=== PATIENT | male | born 1970 | race Caucasian/White ===

== ENCOUNTER 2020-08-05 06:29 | Day surgery (SDC) | payer OTHER, SELFPAY ==
[2020-07-30 11:02] VITALS: BMI 23.9
--- NOTE | 2020-07-30 15:24 | P.CONAN_ITS ---
Documented by User: Aurelia Jorge 07/30/20 15:24 HPI - Anesthesia Eval Consult details Narrative: 50yo M for Colonoscopy [facility] Past Medical History Medical History History of anxiety History of depression Social History Social History Smoking Status: Former smoker Smoking Quit Date: 2009 Use of substances other than those prescribed or required for medical reasons: No Advance Directives: No Advance Directives Information Provided: No Advance Directives on File: No Meds Allergies Allergy/AdvReac Type Severity Reaction Status Date / Time No Known Allergies Allergy Verified 07/30/20 15:25 Home Medications Medication Instructions Recorded Confirmed Type cholecalciferol (vitamin D3) 1 tab PO DAILY 07/30/20 08/05/20 History Exam Exam Date and Time: July 30, 2020 1524 Height,Weight and Vital Signs: Height 5 ft 9 in Weight 73.482 kg Documented by User: Arturo Christine 08/05/20 08:20 [facility] Past Medical History Medical History History of anxiety History of depression Social History Social History Smoking Status: Former smoker Smoking Quit Date: 2009 Use of substances other than those prescribed or required for medical reasons: No Advance Directives: No Advance Directives Information Provided: No Advance Directives on File: No Meds Allergies Allergy/AdvReac Type Severity Reaction Status Date / Time No Known Allergies Allergy Verified 07/30/20 15:25 Home Medications Medication Instructions Recorded Confirmed Type cholecalciferol (vitamin D3) 1 tab PO DAILY 07/30/20 08/05/20 History Exam Airway Mallampati Class: II TM Dist: >3cm Neck ROM: Full
[2020-08-05 07:31] VITALS: BP 133/92; PULSE 66; RESP 18; TEMP 36.3; O2SAT 97
[2020-08-05] MEDS: Lactated Ringers 1,000 ML 100 ML IVCONT (07:46)
--- NOTE | 2020-08-05 08:40 | MHC.SHP ---
Pre-Procedural Eval Section A The patient is an INPATIENT: No Section B Chief Complaint: screening Details of Present Illness: Colon Cancer screening--no high risk Relevant Family History (Specify if Yes): No Relevant Social History: Tobacco Use (only smoked for 6 years) Present Medications: None Medical History: No relevant PMH History of Previous Operations: No relevant previous surgery Allergies: Allergies Allergy/AdvReac Type Severity Reaction Status Date / Time No Known Allergies Allergy Verified 07/30/20 15:25 Review of Systems Sugical H&P ROS: Negative: Constitution, Cardiovascular, Respiratory and Gastrointestinal Review of Systems Comment: General ROS is neg Exam Surgical H&P Exam: Normal: Heart, Normal: Lungs, Normal: Extremities, Normal: Abdomen and Normal: Skin and Not Evaluated: HEENT and Not Evaluated: Neurological Exam Comment: normal exam Plan Diagnosis/Plan: Unchanged Patient has been examined and remains a candidate for the planned procedure
--- NOTE | 2020-08-05 09:12 | PM.OP ---
Brief Operative Note Date of procedure: 08/05/20 Pre-op diagnosis: Colon cancer Screening Post-op diagnosis: other (Minor Diverticulosis, 1+ Internal Hemorrhoids.) Procedure: Colonoscopy--no bx Implants: NONE Surgeon: Michelle Hook MD Anesthesia: MAC (Emmett/Daniel) Estimated blood loss (mL): 0 Pathology: none sent Condition: stable Disposition: PACU
[2020-08-05 09:16] VITALS: BP 97/60; PULSE 72; RESP 16; TEMP 37; O2SAT 97
[2020-08-05 09:31] VITALS: BP 107/65; PULSE 55; RESP 16; O2SAT 99
[2020-08-05 09:46] VITALS: BP 129/93; PULSE 57; RESP 16; TEMP 36.6; O2SAT 99
--- NOTE | 2020-08-05 10:12 | HO.POSTANES ---
Post Anesthesia Evaluation Post Anesthesia Evaluation Vital Signs: Vital Signs Temp Pulse Resp BP Pulse Ox 08/05/20 09:46 98 F 57 16 129/93 H 99 08/05/20 09:31 55 16 107/65 99 08/05/20 09:16 98.6 F 72 16 97/60 97 08/05/20 07:31 97.4 F 66 18 133/92 H 97 Anesthesia: Monitored Mental Status: Awake Pain Control: Satisfactory Nausea/Vomiting: None Hydration: Adequate Anesthesia-Related Issues: No Anes. Related Issues
== END 2020-08-05 10:29 | disposition home or self-care (01) ==
PROVIDERS: PCP Nurse Practitioner Family; Visit Provider Internal Medicine Gastroenterology
PROC: 0DJD8ZZ Inspection of Lower Intestinal Tract, Via Natural or Artificial Opening Endoscopic (ICD-10-PCS; CPT 45378; principal; 2020-08-05 08:30)
DX: Z12.11 Encounter for screening for malignant neoplasm of colon (principal); K57.30 Diverticulosis of large intestine without perforation or abscess without bleeding; K64.8 Other hemorrhoids; F32.9 Major depressive disorder, single episode, unspecified; F41.9 Anxiety disorder, unspecified; Z87.891 Personal history of nicotine dependence
CPT/HCPCS: 45378

== ENCOUNTER → 2020-08-30 11:05 | Outpatient (BNVA) | payer OTHER, SELFPAY | PROVIDERS: PCP Nurse Practitioner Family; Referring Provider Nurse Practitioner Family; Visit Provider Nurse Practitioner | DX: Z09 Encounter for follow-up examination after completed treatment for conditions other than malignant neoplasm (principal) | CPT/HCPCS: 99212 ==

== ENCOUNTER 2022-05-05 09:39 | Outpatient (REF) | payer OTHER, SELFPAY ==
--- NOTE | ~2022-05-05 | XR_ITS ---
EXAMINATION: XR HAND, LEFT CLINICAL INFORMATION: Contusion left hand. COMPARISON: None TECHNIQUE: PA, lateral, and oblique views of the left hand. FINDINGS: There is no visible acute fracture, dislocation or subluxation. No bony erosive changes. There is minimal soft tissue swelling PIP joints second through fourth digits. XR/XR hand LT min 3V IMPRESSION: Nonspecific soft tissue swelling PIP joints second through fourth digits. No visible acute fracture or dislocation.
== END 2022-05-05 09:40 | disposition home or self-care (01) ==
LOC: HO.XRAY 09:39
PROVIDERS: PCP Nurse Practitioner Family; Visit Provider Internal Medicine
DX: S60.222A Contusion of left hand, initial encounter (principal)
CPT/HCPCS: 73130

== ENCOUNTER 2022-09-13 07:29 | Outpatient (REF) | payer OTHER, SELFPAY ==
[2022-09-13 07:43] LABS: MANUAL DIFF FLAG NO
[2022-09-13 08:31] LABS: Basophils Percent Auto 0.7 % (0-2); Eosinophils Absolute Auto 0.2 X10*3/uL (0.0-0.4); Eosinophils Percent Auto 3.4 % (0-4); Hematocrit 45.7 % (42.0-52.0); Hemoglobin 15.8 g/dl (14.0-18.0); Imm Gran Abs Auto 0.01 X10*3/uL (0.00-0.03); Imm Gran Pct Auto 0.2 % (0.0-0.4); Lymphocytes Absolute Auto 1.4 X10*3/uL (1.2-4.9); Lymphocytes Percent Auto 26.5 % (20-40); Mean Corpuscular HGB Conc 34.6 g/dl (31.0-36.0); Mean Corpuscular Volume 89.6 fL (80.0-98.0); Monocytes Absolute Auto 0.6 X10*3/uL (0.1-1.2); Monocytes Percent Auto 10.7 % (2-11); Neutrophils Absolute Auto 3.1 x10*3/uL (2.0-8.3); Neutrophils Percent Auto 58.5 % (45-73); Platelet Count 285 X10*3/uL (160-400); Red Cell Distribution Width 11.9 % (11.0-16.0); White Blood Count 5.4 X10*3/uL (4.8-10.8)
[2022-09-13 09:07] LABS: Alanine Aminotransferase 29 U/L (0-40); Albumin Level 4.7 g/dL (3.5-5.0); Alkaline Phosphatase 61 U/L (39-117); Anion Gap 13 (12-20); Aspartate Amino Transferase 26 U/L (5-37); Bilirubin Total 0.8 mg/dL (0.0-1.0); Blood Urea Nitrogen 12 mg/dL (9-16); Calcium 9.6 mg/dL (8.4-10.2); Carbon Dioxide 30 mmol/L (22-29); Chloride 101 mmol/L (96-108); Cholesterol 256 mg/dL; Estimated Glomerular Filt Rate > 60; Glucose Fasting 87 mg/dL (60-99); HDL Cholesterol 64 mg/dL; LDL Cholesterol Calculated 163 mg/dl; Potassium 4.6 mmol/L (3.3-5.1); Sodium 139 mmol/L (135-145); Total Protein 7.3 g/dL (6.5-8.0); Triglycerides 147 mg/dL
[2022-09-13 09:25] LABS: TSH reflex Free T4 1.39 uIU/mL (0.32-4.0)
[2022-09-13 10:18] LABS: Appearance Urine Clear; Color Urine Yellow; Glucose Urine UA Negative (Negative); Leukocyte Esterase Urine Trace (Negative); Nitrite Urine Negative (Negative); UMIC TRIGGER UACC YES; Urine Blood Negative (Negative); Urine Ketones Negative (Negative); Urine Protein Negative (Neg-Trace)
[2022-09-13 10:24] LABS: Bacteria Urine None Seen (None Seen); Hyaline Casts Urine 0-2 /LPF (0-2); RBC Urine 0-2 /HPF (0-2); Squamous Epithelial Cell Urine 0-2 /HPF (0-2); WBC Urine 0-5 /HPF (0-5)
[2022-09-13 10:35] LABS: Prostate Specific Antigen Scr 4.52 ng/mL (<0.05-4.0)
== END 2022-09-13 07:30 | disposition home or self-care (01) ==
LOC: HO.LAB 07:29
PROVIDERS: PCP Nurse Practitioner Family; Visit Provider Nurse Practitioner Family
DX: Z12.5 Encounter for screening for malignant neoplasm of prostate (principal); I10 Essential (primary) hypertension
CPT/HCPCS: 36415; 80053; 80061; 81001; 81003; 84153; 84443; 85025

== ENCOUNTER → 2022-11-06 12:39 | Outpatient (BNVA) | payer OTHER, SELFPAY | PROVIDERS: PCP Nurse Practitioner Family; Visit Provider Nurse Practitioner Family | DX: R97.20 Elevated prostate specific antigen [PSA] (principal) | CPT/HCPCS: 99202 ==

== ENCOUNTER 2022-11-08 07:09 | Outpatient (REF) | payer OTHER, SELFPAY | END 2022-11-08 07:10 | disposition home or self-care (01) | LOC: HO.LAB 07:09 | PROVIDERS: PCP Nurse Practitioner Family; Visit Provider Nurse Practitioner Family | DX: R97.20 Elevated prostate specific antigen [PSA] (principal); Z12.5 Encounter for screening for malignant neoplasm of prostate | CPT/HCPCS: 36415; 84153 ==

== ENCOUNTER 2022-11-23 15:49 | Outpatient (REF) | payer OTHER, SELFPAY ==
--- NOTE | ~2022-11-23 | US_ITS ---
EXAMINATION: US RETROPERITONEAL LIMITED (RENAL ONLY) CLINICAL INFORMATION: Elevated PSA. COMPARISON: None TECHNIQUE: Real-time imaging of the kidneys. FINDINGS: RIGHT KIDNEY: 10.1 x 4.8 x 5.3 cm (SAG x AP x TRV). The kidney is normal in size, contour, and echogenicity. Renal cortical thickness is normal. No calculi or focal parenchymal lesions. No hydronephrosis. LEFT KIDNEY: 10.4 x 4.6 x 5.9 cm (SAG x AP x TRV). The kidney is normal in size, contour, and echogenicity. Renal cortical thickness is normal. No focal parenchymal lesions or hydronephrosis. At the interpolar aspect, a 6 mm nonobstructing calculus is seen, with twinkle artifact. At the lower pole, a 5 mm nonobstructing calculus is seen, with twinkle artifact. US/US retroperitoneal limited IMPRESSION: There are nonobstructing left renal calculi. No right renal calculus is seen. No hydronephrosis is noted bilaterally.
== END 2022-11-23 15:50 | disposition home or self-care (01) ==
LOC: HO.US 15:49
PROVIDERS: PCP Nurse Practitioner Family; Visit Provider Nurse Practitioner Family
DX: R35.1 Nocturia (principal); R97.20 Elevated prostate specific antigen [PSA]
CPT/HCPCS: 76775

== ENCOUNTER → 2022-11-30 15:31 | Outpatient (BNVA) | payer OTHER, SELFPAY | PROVIDERS: PCP Nurse Practitioner Family; Visit Provider Nurse Practitioner Family | DX: N20.0 Calculus of kidney (principal); R35.1 Nocturia | CPT/HCPCS: 99212 ==

== ENCOUNTER → 2023-05-25 14:13 | Outpatient (BNVA) | payer OTHER, SELFPAY | PROVIDERS: Visit Provider Nurse Practitioner Family ==

== ENCOUNTER 2023-06-04 13:42 | Outpatient (REF) | payer OTHER, SELFPAY ==
--- NOTE | ~2023-06-04 | US_ITS ---
EXAMINATION: US RETROPERITONEAL COMPLETE (RENAL) CLINICAL INFORMATION: Nocturia. COMPARISON: Ultrasound retroperitoneal limited (renal only) 11/23/2022. TECHNIQUE: Real-time imaging of the kidneys and bladder. FINDINGS: RIGHT KIDNEY: 10.6 x 5.1 x 5.8 cm (SAG x AP x TRV). The kidney is normal in size, contour, and echogenicity. Renal cortical thickness is normal. No calculi or focal parenchymal lesions. No hydronephrosis. There are multiple echogenic foci seen through the kidney without shadowing LEFT KIDNEY: 10.3 x 5.4 x 5.8 cm (SAG x AP x TRV). The kidney is normal in size, contour, and echogenicity. Renal cortical thickness is normal. No focal parenchymal lesions or hydronephrosis. There is lower pole 0.3 x 0.3 x 0.3 cm calcification in there is upper pole 0.3 x 0.3 x 0.3 cm calcification consistent with small stones. There are multiple echogenic foci seen in the collecting system without shadowing. BLADDER: Well distended and normal. Bilateral ureteral jets are demonstrated. Prevoid bladder volume is 396 mL. Postvoid bladder volume is 41 mL. ADDITIONAL FINDINGS: Prostate is enlarged and heterogeneous with calcifications, measured 4.2 x 5.1 x 4.6 cm. US/US retroperitoneal comp IMPRESSION: 1. Left-sided nephrolithiasis without hydronephrosis. 2. Enlarged prostate. 3. Small amount of residual urine in the bladder.
== END 2023-06-04 13:43 | disposition home or self-care (01) ==
LOC: HO.US 13:42
PROVIDERS: PCP Nurse Practitioner Family; Visit Provider Nurse Practitioner Family
DX: R35.1 Nocturia (principal); N20.0 Calculus of kidney
CPT/HCPCS: 76770

== ENCOUNTER 2023-06-20 11:16 | Outpatient (AMB) | payer OTHER, SELFPAY ==
--- NOTE | 2023-06-20 11:21 | MHC.OFFVIS ---
Intake Intake Visit Reasons: 6m/US/PVR Intake Note: Patient is present for follow up Ultrasound Results/PVR (imaging 06/04/23) Urology Medication: Vitamin B6 Blood Thinner: none PVR: 7ml's Sales Order Specialist Required: No Accompanied by: Self / Same As Patient Allergies No Known Allergies Allergy (Verified 06/20/23 21:25) Medication List - Last Reconciled 06/20/23 by MY Huang losartan 50 mg PO DAILY 90 days meloxicam 15 mg PO DAILY PRN 30 days pyridoxine (vitamin B6) 100 mg PO DAILY 90 days HPI HPI Comments History of Present Illness Details Ryne is a pleasant 52-year-old male patient of Dr. Vásquez. He has a past medical history of anxiety and depression. He presents to the office today for follow-up. Of note, patient was seen approximately 6 months ago at which time a retroperitoneal ultrasound was ordered for further assessment evaluation of patient's history of nephrolithiasis and elevated PSA. In discussion with the patient today he reports to be doing and feeling well. Right kidney with no calculi, lesions, or hydronephrosis.5 left kidney with no lesions or hydronephrosis. There is a lower pole 0.3 cm calcification and in the upper pole 0.3 cm calcification consistent with small stones. The bladder is well distended and normal. Pre void bladder volume is approximately 400 mL. Postvoid bladder volume is approximately 40 mL. Prostate is enlarged. PSAs are as follows... 06/16--1.8 09/19--4.5 11/20--1.7 When asked patient reports compliance with vitamin B6 daily. He discusses attempting to drink plenty of water daily. When asked he denies any bothersome urinary issues or concerns at this time. When asked he denies urinary urgency, urinary frequency, incontinence, hematuria, dysuria, foul smelling urine, changes to urinary stream, flank pain, fever, and or chills. He does report getting up 1-2 times per night to void however does not find this bothersome. He is happy with his current voiding parameters. He otherwise offers no other issues or concerns at this time. In office urinalysis results reviewed with the patient today. [facility] Medical History History of anxiety History of depression Nocturia Surgical History Hx of colonoscopy Family History Father No problems noted. Mother No problems noted. Social History Household Members: None Housing: House Alcohol intake: current Alcohol intake frequency: a few times a week Alcohol type: hard liquor Patient Tobacco Use Status: Former Tobacco user Quit Date: quit 15 years ago e-Cigarette/Vaping Use: Never Used Second Hand Smoke Exposure: No service: Yes Current occupational status: employed Current occupation: [employer] Current occupational exposures/hazards: Yes Cognitive needs: No Hearing needs: No Vision needs: No Review of Systems Const All systems reviewed & are unremarkable except as noted in HPI and below Reports no additional complaints Eyes Reports no additional complaints ENT Reports no additional complaints Card Reports no additional complaints Resp Reports no additional complaints GI Reports no additional complaints Reports as per HPI Musc Reports no additional complaints Neuro Reports no additional complaints Psych Reports as per HPI Endo Reports no additional complaints Chris/Lymph Reports no additional complaints Aller/Immun Reports no additional complaints Physical Exam Const General: cooperative, healthy appearing, comfortable, no acute distress, well developed, alert and awake Orientation/consciousness: patient oriented x3 Limitations: no limitations HEENT Head: Yes normal to inspection, Yes normocephalic and Yes atraumatic Ears: hearing grossly normal bilaterally Eyes General: appearance normal, both eyes and all related structures Neck Neck: Yes normal visual inspection and Yes trachea midline Chest Chest palpation & inspection: normal inspection of the chest Resp Effort & Inspection: normal respiratory effort and able to speak in complete sentences Cardio Rate: regular rate GI Inspection: Yes normal to inspection General: Yes no CVA tenderness Back/Spine/Pelvis Back: no CVA tenderness Skin General skin exam: no rashes or lesions noted Neuro General: patient oriented x3 Extrem General: Yes normal to inspection Psych Appearance: grossly normal and well kempt Mental Status: mental status grossly normal Speech and movement: Normal speech and movement present and Clear speech present Affect: normal affect Attitude: cooperative Thought process: Other thought process findings present (vague ) Thought content: Normal thought content present Insight: Fair insight present (Psych) Judgement: Fair judgement present (Psych) Office Procedures Post Void Residual Post Residual Void Post Void Residual (PVR): 7 [id number] Void Residual by ultrasound Results AMB Urinalysis, Automated UA Leukoctes 0 Nilo/uL Last Edit by NAVITIME JAPANkeith Ashraf on 06/20/23 11:42 UA Nitrite Last Edit by Flicstartbeth Ashraf on 06/20/23 11:42 UA Urobilinogen 0.2 mg/dL Last Edit by Matatena Gamesjosef on 06/20/23 11:42 UA Protein 0 mg/dL Last Edit by Matatena Gamesjosef on 06/20/23 11:42 UA pH 8.0 Last Edit by Matatena Gamesjosef on 06/20/23 11:42 UA Blood 0 Kilo/uL Last Edit by Matatena Gamesjosef on 06/20/23 11:42 UA Specific [place] 1.010 Last Edit by Matatena Gamesjosef on 06/20/23 11:42 UA Ketone Last Edit by Matatena Gamesjosef on 06/20/23 11:42 UA Bilirubin 0 mg/dL Last Edit by Matatena Gamesjosef on 06/20/23 11:42 UA Glucose 0 mg/dL Last Edit by Matatena Gamesjosef on 06/20/23 11:42 Results Reviewed Results Reviewed: Laboratory Last Values Urine pH (Auto) 8.0 06/20/23 11:26 Specific [place] (Auto) 1.010 06/20/23 11:26 Urine Protein (Auto) 0 mg/dL 06/20/23 11:26 Glucose (UA)(Auto) 0 mg/dL 06/20/23 11:26 Urine Blood (Auto) 0 Kilo/uL 06/20/23 11:26 Urine Bilirubin (Auto) 0 mg/dL 06/20/23 11:26 Urine Urobilinogen (Auto) 0.2 mg/dL 06/20/23 11:26 Leukocyte Esterase (Auto) 0 Nilo/uL 06/20/23 11:26 Date of Service: 06/04/23 EXAMINATION: US RETROPERITONEAL COMPLETE (RENAL) FINDINGS: RIGHT KIDNEY: 10.6 x 5.1 x 5.8 cm (SAG x AP x TRV). The kidney is normal in size, contour, and echogenicity. Renal cortical thickness is normal. No calculi or focal parenchymal lesions. No hydronephrosis. There are multiple echogenic foci seen through the kidney without shadowing LEFT KIDNEY: 10.3 x 5.4 x 5.8 cm (SAG x AP x TRV). The kidney is normal in size, contour, and echogenicity. Renal cortical thickness is normal. No focal parenchymal lesions or hydronephrosis. There is lower pole 0.3 x 0.3 x 0.3 cm calcification in there is upper pole 0.3 x 0.3 x 0.3 cm calcification consistent with small stones. There are multiple echogenic foci seen in the collecting system without shadowing. BLADDER: Well distended and normal. Bilateral ureteral jets are demonstrated. Prevoid bladder volume is 396 mL. Postvoid bladder volume is 41 mL. ADDITIONAL FINDINGS: Prostate is enlarged and heterogeneous with calcifications, measured 4.2 x 5.1 x? 4.6 cm. IMPRESSION: 1.? Left-sided nephrolithiasis without hydronephrosis. 2.? Enlarged prostate. 3.? Small amount of residual urine in the bladder. Assessment & Plan Assessment & Plan (1) Bilateral nephrolithiasis: Code(s): N20.0 - Calculus of kidney Plan In office urinalysis results reviewed with the patient today; as noted above Recent retroperitoneal ultrasound results reviewed with the patient today; as noted above Discussed, encouraged, and instructed on the importance of maintaining adequate amount of fluid daily. Discussed at length nephrolithiasis potential causes as well as treatment options; discussed 24 hour urine collection and labs however patient declines at this time Discussed adding one ounce of lemon juice to water daily Continue vitamin B6 daily as discussed and prescribed Patient denies any bothersome urinary issues or concerns at this time. Renal ultrasound and PSA in 1 year. Follow-up in 1 year with imaging and lab to be completed prior; or sooner with any issues, concerns, and or questions. Orders: Orders Prostate Specific Antigen 364 Days R97.20 - Elevated prostate specific antigen [PSA] US renal BI 364 Days N20.0 - Calculus of kidney AMB Urinalysis Automated Today Z13.9 - Encounter for screening, unspecified AMB Post Void Residual by ultrasound Today R35.1 - Nocturia Patient Instructions: The patient had an opportunity to ask questions regarding the treatment plan. All questions were answered. Physical exam, labs, and imaging were discussed and reviewed in detail. As well as risks, benefits, and discussion of treatment choices. No major barriers to understanding were identified. The patient expressed understanding and agreement with the above treatment plan. The patient was made aware they should contact our office by phone for worsening of their current condition, the appearance of new symptoms, or with any questions or concerns. Compliance is encouraged with any medications and follow up testing that is ordered. It is a privilege to be allowed the opportunity to participate in? your urological care.? Again, if you have any questions or concerns If you have any questions or concerns please do not hesitate to contact me. The office is [phone]. This note is constructed using voice recognition software. While every effort has been made to ensure accuracy insurance adviser errors may have been included. Yours sincerely, ANTOINETTE Huang-JOI Coding Level of Care Code Est Pt Level 3 (42457) Diagnoses Bilateral nephrolithiasis N20.0 CPT Codes Post Residual Void - PVR CPT Code: 41180-Hpii Void Residual by ultrasound ([id number])
== END 2023-06-20 13:16 | disposition home or self-care (01) ==
PROVIDERS: PCP Nurse Practitioner Family; Visit Provider Nurse Practitioner Family
DX: N20.0 Calculus of kidney (principal)
CPT/HCPCS: 99213

== ENCOUNTER → 2023-06-20 11:16 | Outpatient (BNVA) | payer OTHER, SELFPAY | PROVIDERS: PCP Nurse Practitioner Family; Visit Provider Nurse Practitioner Family | DX: N20.0 Calculus of kidney (principal) | CPT/HCPCS: 51798; 81003; 99212 ==

== ENCOUNTER 2023-07-05 08:51 | Outpatient (REF) | payer OTHER, SELFPAY ==
[2023-07-05 09:02] LABS: MANUAL DIFF FLAG NO
[2023-07-05 09:48] LABS: Basophils Absolute Auto 0.1 X10*3/uL (0.0-0.2); Basophils Percent Auto 1.3 % (0-2); Eosinophils Absolute Auto 0.1 X10*3/uL (0.0-0.4); Hematocrit 42.7 % (42.0-52.0); Imm Gran Abs Auto 0.01 X10*3/uL (0.00-0.03); Imm Gran Pct Auto 0.2 % (0.0-0.4); Lymphocytes Absolute Auto 1.1 X10*3/uL (1.2-4.9); Lymphocytes Percent Auto 23.8 % (20-40); Mean Corpuscular HGB Conc 35.1 g/dl (31.0-36.0); Mean Corpuscular Hemoglobin 31.4 pg (27.0-33.0); Mean Corpuscular Volume 89.5 fL (80.0-98.0); Mean Platelet Volume 9.7 fL (9.4-12.4); Monocytes Absolute Auto 0.5 X10*3/uL (0.1-1.2); Monocytes Percent Auto 9.7 % (2-11); Neutrophils Absolute Auto 2.9 x10*3/uL (2.0-8.3); Platelet Count 309 X10*3/uL (160-400); Red Blood Count 4.77 X10*6/uL (4.60-5.80); Red Cell Distribution Width 12.1 % (11.0-16.0); White Blood Count 4.6 X10*3/uL (4.8-10.8)
[2023-07-05 10:38] LABS: Alanine Aminotransferase 24 U/L (0-40); Albumin Level 4.5 g/dL (3.5-5.0); Alkaline Phosphatase 44 U/L (39-117); Anion Gap 13 (12-20); Aspartate Amino Transferase 26 U/L (5-37); Bilirubin Total 0.9 mg/dL (0.0-1.0); Blood Urea Nitrogen 15 mg/dL (9-16); Calcium 9.4 mg/dL (8.4-10.2); Carbon Dioxide 23 mmol/L (22-29); Chloride 107 mmol/L (96-108); Cholesterol 192 mg/dL (<200); Estimated Glomerular Filt Rate > 60; Glucose Fasting 85 mg/dL (60-99); HDL Cholesterol 66 mg/dL (>40); LDL Cholesterol Calculated 102 mg/dL (<100); Potassium 3.9 mmol/L (3.3-5.1); Sodium 139 mmol/L (135-145); Total Protein 6.9 g/dL (6.5-8.0); Triglycerides 120 mg/dL (<150)
[2023-07-05 10:56] LABS: TSH reflex Free T4 0.96 uIU/mL (0.32-4.0)
== END 2023-07-05 08:52 | disposition home or self-care (01) ==
LOC: HO.LAB 08:51
PROVIDERS: PCP Nurse Practitioner Family; Visit Provider Nurse Practitioner Family
DX: I10 Essential (primary) hypertension (principal)
CPT/HCPCS: 36415; 80053; 80061; 84443; 85025

== ENCOUNTER 2023-07-10 08:02 | Outpatient (AMB) | payer OTHER, SELFPAY ==
[2023-07-10 08:09] VITALS: BP 124/86; PULSE 82; O2SAT 95; BMI 24.0
--- NOTE | 2023-07-10 08:09 | A.OFFPC_ITS ---
Vital Signs 07/10/23 08:09 Height 5 ft 9 in Weight 162 lb 6 oz BMI 24.0 BP 124/86 Blood Pressure Location Lt brachial Position Sitting Pulse 82 Pulse Source Pulse Oximeter Pulse Oximetry (%) 95 Oxygen Delivery Method Room Air Intake Visit Reasons: Annual PE Allergies No Known Allergies Allergy (Verified 07/10/23 08:11) Medication List - Last Reconciled 07/10/23 by MY Holden losartan 50 mg PO DAILY 90 days meloxicam 15 mg PO DAILY PRN 30 days pyridoxine (vitamin B6) 100 mg PO DAILY 90 days Tobacco use date assessed: 07/10/23 Dental Screening Dental Screen Date: 07/10/23 Did you have a dental visit in the last 12 months?: Yes Did you have a dental problem in the last 6 months where you did not have access to dental care?: No Was dental information given to patient?: Patient has dentist HPI Annual PE HPI0 Details Pt is here for a PE. Labs were already ordered. PSA is up to date, sees urology. Colon screen is up to date. HTN: Blood pressure is managed with losar martinez 50mg. Pt reports that his blood pressure at home is mostly stable, will have him continue to monitor, knows to call me with BP sustaining above 140/90. Denies chest pain, shortness of breath, headache, dizziness, and blurred vision. He is working on his diet. [facility] Medical History Nocturia History of depression History of anxiety Surgical History Hx of colonoscopy Family History Father No problems noted. Mother No problems noted. Social History Household Members: None Housing: House Alcohol intake: current Alcohol intake frequency: a few times a week Alcohol type: hard liquor Patient Tobacco Use Status: Former Tobacco user Quit Date: quit 15 years ago e-Cigarette/Vaping Use: Never Used Second Hand Smoke Exposure: No service: Yes Current occupational status: employed Current occupation: [employer] Current occupational exposures/hazards: Yes Cognitive needs: No Hearing needs: No Vision needs: No Questionnaire AUDIT C Alcohol Use Questionnaire (AUDIT-C) 1. How often do you have a drink containing alcohol?: 2-3 times a week 2. How many drinks containing alcohol do you have on a typical day when you are drinking?: 1 or 2 3. How often do you have six or more drinks on one occasion?: Never Total Score: 3 JUN-7 AMB Questionnaire JUN-7 Feeling nervous, anxious, or on edge: 0 = Not at all Not being able to stop or control worryin = Not at all Worrying too much about different things: 0 = Not at all Trouble relaxin = Not at all Being so restless that it is hard to sit still: 0 = Not at all Becoming easily annoyed or irritable: 0 = Not at all Feeling afraid as if something awful might happen: 0 = Not at all Total JUN-7 score (0-4 normal; 5-9 mild; 10-14 moderate; 15-21 severe): 0 Source: Developed by Drs. Jj Sanches, Ines Browne, Yang Crocker and colleagues, with an educational vimal from [employer]. Review of Systems Const Denies chills and Denies fever(s) Eyes Denies blurry vision ENT Denies vertigo, Denies dizziness and Denies sore throat Card Denies chest pain at rest, Denies chest pain with activity, Denies diaphoresis, Denies dyspnea and Denies dyspnea on exertion Resp Denies cough, Denies dyspnea, Denies dyspnea on exertion and Denies wheezing GI Denies abdominal pain, Denies melena, Denies hematochezia, Denies constipation, Denies diarrhea and Denies loose stools Denies hematuria Musc Denies numbness and Denies tingling Skin/Breast Denies lesions Neuro Denies vertigo, Denies dizziness, Denies numbness and Denies tingling Psych Denies anxiety, Denies depression, Denies homicidal ideation, Denies suicidal ideation and Denies other (substance abuse) Aller/Immun Denies wheezing Physical exam (Primary Care) Vital Signs: Last Vital Signs Pulse 82 07/10/23 08:09 BP 124/86 07/10/23 08:09 Pulse Ox 95 07/10/23 08:09 Oxygen Delivery Method Room Air 07/10/23 08:09 BMI result Body Mass Index 24.0 Tobacco/Smoking Status: Tobacco use Status Tobacco use date assessed 07/10/23 07/10/23 08:12 Patient Tobacco Use Status Former Tobacco user 07/10/23 08:12 e-Cigarette/Vaping Use Never Used 07/10/23 08:12 Const General: cooperative Nutritional Appearance: well nourished Orientation/consciousness: patient oriented x3 HENMT Head: Yes normal to inspection, Yes normocephalic and Yes atraumatic Ears: TM's normal bilaterally Eyes General: appearance normal, both eyes and all related structures Alignment and Position: alignment normal and position normal Neck Neck: Yes normal visual inspection and Yes no lymphadenopathy Thyroid: Thyroid normal Resp Effort & Inspection: normal respiratory effort Auscultation: clear to auscultation bilaterally Cardio Rate: regular rate Rhythm: regular rhythm Heart sounds: S1 normal heart sound present, S2 normal heart sound present and no murmurs GI Palpation (GI): Soft to palpation and nontender Auscultation: normal bowel sounds Male General Exam: Yes normal external exam Penis: normal penis Scrotum: scrotum normal, testes descended bilaterally and no inguinal hernias Testes: no testicular mass Skin Rashes: no rashes Neuro General: patient oriented x3, moves all extremities, no focal motor deficits and deep tendon reflexes 2+ bilaterally Romberg Test: Negative Psych Appearance: grossly normal Mental Status: mental status grossly normal Speech and movement: Normal speech and movement present Affect: normal affect Attitude: cooperative Thought process: Normal thought process present Thought content: Normal thought content present Insight: Good insight present (Psych) Judgement: Good judgement present (Psych) Assessment and Plan Assessment & Plan (1) Physical exam: Code(s): Z00.00 - Encounter for general adult medical examination without abnormal findings (2) HTN (hypertension): Code(s): I10 - Essential (primary) hypertension Plan The patient agreed to the use of a ophthalmic medical technician for this encounter. Scribed for MY Vang by Debra Headley ophthalmic medical technician, on 07/10/2023 at 08:20 EST. Coding Level of Care Code Est Pt Prev Care 40-64y(80651) Diagnoses Physical exam Z00.00 HTN (hypertension) I10
== END 2023-07-10 09:02 | disposition home or self-care (01) ==
PROVIDERS: Visit Provider Nurse Practitioner Family
DX: Z00.00 Encounter for general adult medical examination without abnormal findings (principal); I10 Essential (primary) hypertension
CPT/HCPCS: 99396

== ENCOUNTER 2024-01-14 08:21 | Outpatient (AMB) | payer OTHER, SELFPAY ==
[2024-01-14 08:25] VITALS: BP 118/76; PULSE 72; O2SAT 96; BMI 23.8
--- NOTE | 2024-01-14 08:25 | A.OFFPC_ITS ---
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 Accompanied by: Self / Same As Patient Allergies No Known Allergies Allergy (Verified 01/14/24 08:48) Medication List - Last Reconciled 01/14/24 by ANTOINETTE Holden-JOI clotrimazole-betamethasone 1-0.05 % 1 appl topical BID 2 weeks losartan 50 mg PO DAILY 90 days meloxicam 15 mg PO DAILY PRN 30 days pyridoxine (vitamin B6) 100 mg PO DAILY 90 days Tobacco use date assessed: 01/14/24 Dental Screening Dental Screen Date: 01/14/24 Did you have a dental visit in the last 12 months?: Yes Did you have a dental problem in the last 6 months where you did not have access to dental care?: No Was dental information given to patient?: Patient has dentist HPI 6 month fu HPI Details HTN: Blood pressure is stable, managed with losartan 50mg. Will order labs. Denies chest pain, shortness of breath, headache, dizziness, and blurred vision. Hx of tinea cruris, needs a refill of cream (which pt reported worked well). [facility] Medical History (Updated 01/14/24 @ 08:51 by MY Holden) Tinea cruris Nocturia History of depression History of anxiety Surgical History Hx of colonoscopy Family History Father No problems noted. Mother No problems noted. Social History Household Members: None Housing: House Alcohol intake: current Alcohol intake frequency: a few times a week Alcohol type: hard liquor Patient Tobacco Use Status: Former Tobacco user Quit Date: quit 15 years ago e-Cigarette/Vaping Use: Never Used Second Hand Smoke Exposure: No service: Yes Current occupational status: retired Current occupation: [employer] Current occupational exposures/hazards: Yes Cognitive needs: No Hearing needs: No Vision needs: No Questionnaire PHQ-9 Over the last 2 weeks, how often have you been bothered by any of the following problems? 1. Little interest or pleasure in doing things: not at all 2. Feeling down, depressed, or hopeless: not at all 3. Trouble falling or staying asleep, or sleeping too much: not at all 4. Feeling tired or having little energy: not at all 5. Poor appetite or overeating: not at all 6. Feeling bad about yourself - or that you are a failure or have let yourself or your family down: not at all 7. Trouble concentrating on things, such as reading the newspaper or watching television: not at all 8. Moving or speaking so slowly that other people could have noticed. Or the opposite - being so fidgety or restless that you have been moving around a lot more than usual: not at all 9. Thoughts that you would be better off or of hurting yourself in some way: not at all Total score: 0 Depression Screening Interpretation: Negative Depression Screening Done: Yes 18665 - PHQ-9 Billing: Yes Source: Developed by Drs. Jj Sanches, Ines Browne, Yang Crocker and colleagues, with an educational vimal from [employer]. Thrive Questionnaire Date Thrive assessed: 01/14/24 I am a: Patient What is your living situation today?: I have a steady place to live Within the past 12 months, did the food you bought not last and you didn't have the money to get more?: Never true Within the past 12 months, did you worry whether your food would run out before you got money to buy more?: Never true Do you have trouble paying for medicines?: No Do you have trouble getting transportation to medical appointments?: No Do you have trouble paying your heating and electricity bill?: No Do you have trouble taking care of your child, family member or friend?: No Do you have trouble with day-to-day activities such as bathing, preparing meals, shopping, managing finances, etc.?: No Are you currently unemployed and looking for a job?: No Are you interested in more education?: No Please select the resources that you would like help with: None Currently or been in a relationship where the following occur: no concerns reported THRIVE Score: 0 AUDIT C Alcohol Use Questionnaire (AUDIT-C) 1. How often do you have a drink containing alcohol?: 2-3 times a week 2. How many drinks containing alcohol do you have on a typical day when you are drinking?: 1 or 2 3. How often do you have six or more drinks on one occasion?: Never Total Score: 3 Score Reviewed/Action Taken: Yes JUN-7 AMB Questionnaire JUN-7 Date JUN - 7 assessed: 01/14/24 Feeling nervous, anxious, or on edge: 0 = Not at all Not being able to stop or control worryin = Not at all Worrying too much about different things: 0 = Not at all Trouble relaxin = Not at all Being so restless that it is hard to sit still: 0 = Not at all Becoming easily annoyed or irritable: 0 = Not at all Feeling afraid as if something awful might happen: 0 = Not at all Total JUN-7 score (0-4 normal; 5-9 mild; 10-14 moderate; 15-21 severe): 0 Source: Developed by Drs. Jj Sanches, Ines Browne, Yang Crocker and colleagues, with an educational vimal from [employer]. JUN-7 Assessment Billing JUN-7 Assessment Tool: JUN-7 Assessment 79583 Review of Systems Const Reports as per HPI Physical exam (Primary Care) Vital Signs: Last Vital Signs Pulse 72 01/14/24 08:25 BP 118/76 01/14/24 08:25 Pulse Ox 96 01/14/24 08:25 Oxygen Delivery Method Room Air 01/14/24 08:25 BMI result Body Mass Index 23.8 Tobacco/Smoking Status: Tobacco use Status Tobacco use date assessed 01/14/24 01/14/24 08:26 Patient Tobacco Use Status Former Tobacco user 01/14/24 08:26 e-Cigarette/Vaping Use Never Used 01/14/24 08:26 PHQ-9: PHQ-9 Score PHQ-9: Total score 0 01/14/24 08:37 Depression Screening Interpretation: Negative Thrive Assessment: Date of Thrive Assessment Date Thrive assessed 01/14/24 01/14/24 08:33 Currently or been in a relationship where the following occur: no concerns reported Const General: cooperative Orientation/consciousness: patient oriented x3 Resp Effort & Inspection: normal respiratory effort Auscultation: clear to auscultation bilaterally Cardio Rate: regular rate Rhythm: regular rhythm Heart sounds: S1 normal heart sound present and S2 normal heart sound present Neuro General: patient oriented x3 Extrem Right lower extremity: no edema Left lower extremity: no edema Psych Appearance: grossly normal Mental Status: mental status grossly normal Speech and movement: Normal speech and movement present Affect: normal affect Attitude: cooperative Thought process: Normal thought process present Thought content: Normal thought content present Insight: Good insight present (Psych) Judgement: Good judgement present (Psych) Assessment and Plan Assessment & Plan (1) HTN (hypertension): Code(s): I10 - Essential (primary) hypertension Plan: Stable, labs ordered (2) Tinea cruris: Code(s): B35.6 - Tinea cruris Plan: cream sent with refills Plan The patient agreed to the use of a medical facilities section director for this encounter. Scribed for MY Vang by Debra Headley medical facilities section director, on 01/14/2024 at 08:40 EST. Orders: Orders Complete Blood Count Auto Diff Today I10 - Essential (primary) hypertension Comprehensive [place]. Panel Fast Today I10 - Essential (primary) hypertension TSH reflex Free T4 Today I10 - Essential (primary) hypertension UA CC w/rflx Micro + Cult Today I10 - Essential (primary) hypertension Medications: New clotrimazole-betamethasone 1-0.05 % 1 appl topical BID 2 weeks 45 grams 2RF Coding Level of Care Code Est Pt Level 3 (30664) Diagnoses HTN (hypertension) I10 Tinea cruris B35.6 Additional Codes JUN-7 Assessment Billing - JUN-7 Assessment Tool: JUN-7 Assessment 98444 ([id number])
== END 2024-01-14 09:36 | disposition home or self-care (01) ==
PROVIDERS: PCP Nurse Practitioner Family; Visit Provider Nurse Practitioner Family
DX: I10 Essential (primary) hypertension (principal); B35.6 Tinea cruris
CPT/HCPCS: 99213

== ENCOUNTER 2024-03-27 08:19 | Outpatient (REF) | payer OTHER, SELFPAY ==
[2024-03-27 10:32] LABS: MANUAL DIFF FLAG NO
[2024-03-27 10:42] LABS: Basophils Absolute Auto 0.1 X10*3/uL (0.0-0.2); Eosinophils Absolute Auto 0.1 X10*3/uL (0.0-0.4); Eosinophils Percent Auto 2.4 % (0-4); Hematocrit 43.2 % (42.0-52.0); Hemoglobin 15.2 g/dl (14.0-18.0); Imm Gran Abs Auto 0.01 X10*3/uL (0.00-0.03); Imm Gran Pct Auto 0.2 % (0.0-0.4); Lymphocytes Absolute Auto 1.3 X10*3/uL (1.2-4.9); Lymphocytes Percent Auto 25.3 % (20-40); Mean Corpuscular HGB Conc 35.2 g/dl (31.0-36.0); Mean Corpuscular Hemoglobin 31.3 pg (27.0-33.0); Mean Corpuscular Volume 88.9 fL (80.0-98.0); Mean Platelet Volume 9.5 fL (9.4-12.4); Monocytes Absolute Auto 0.5 X10*3/uL (0.1-1.2); Monocytes Percent Auto 9.4 % (2-11); Neutrophils Absolute Auto 3.1 x10*3/uL (2.0-8.3); Neutrophils Percent Auto 61.7 % (45-73); Platelet Count 303 X10*3/uL (160-400); Red Blood Count 4.86 X10*6/uL (4.60-5.80); Red Cell Distribution Width 12.3 % (11.0-16.0)
[2024-03-27 11:13] LABS: Alanine Aminotransferase 24 U/L (0-40); Albumin Level 4.4 g/dL (3.5-5.0); Alkaline Phosphatase 55 U/L (39-117); Anion Gap 11 (12-20); Aspartate Amino Transferase 22 U/L (5-37); Bilirubin Total 0.7 mg/dL (0.0-1.0); Blood Urea Nitrogen 13 mg/dL (9-16); Calcium 8.9 mg/dL (8.4-10.2); Carbon Dioxide 25 mmol/L (22-29); Chloride 108 mmol/L (96-108); Estimated Glomerular Filt Rate > 60; Glucose Fasting 90 mg/dL (60-99); Potassium 3.9 mmol/L (3.3-5.1); Sodium 140 mmol/L (135-145); TSH reflex Free T4 1.26 uIU/mL (0.32-4.0); Total Protein 6.9 g/dL (6.5-8.0)
== END 2024-03-27 08:20 | disposition home or self-care (01) ==
LOC: HO.10HDL 08:19
PROVIDERS: Visit Provider Nurse Practitioner Family
DX: I10 Essential (primary) hypertension (principal)
CPT/HCPCS: 36415; 80053; 84443; 85025

== ENCOUNTER 2024-06-03 07:35 | Outpatient (REF) | payer OTHER, SELFPAY ==
--- NOTE | ~2024-06-03 | US_ITS ---
EXAMINATION: US RETROPERITONEAL LIMITED (RENAL ONLY) CLINICAL INFORMATION: Calculus of kidney. COMPARISON: Ultrasound kidneys and bladder 06/04/2023. Ultrasound kidneys 11/23/2022. TECHNIQUE: Real-time imaging of the kidneys. Limited visualization due to bowel gas. FINDINGS: RIGHT KIDNEY: 10.7 x 6.3 x 5.0 cm (SAG x AP x TRV). No hydronephrosis. No renal calculi. Renal cortical thickness is normal. Limited visualization. LEFT KIDNEY: 10.6 x 5.7 x 5.8 cm (SAG x AP x TRV). No hydronephrosis. Renal cortical thickness is normal. Limited visualization. 1.0 x 0.9 x 0.9 cm left lateral lower pole cyst with 0.7 cm calculus versus cluster of calculi. 0.8 x 0.8 x 0.8 cm upper pole cyst with 0.5 cm mural echogenic focus characteristic of a calcification. 0.5 cm [id number] pole echogenic focus characteristic of a calculus. Previous study of 06/04/2023 demonstrated a 0.3 cm upper is 0.3 cm lower pole calculi. US/US renal BI IMPRESSION: 1. Left renal cysts with calcifications. CT scan recommended for further characterization. 2. Left renal calculi. No hydronephrosis.
== END 2024-06-03 07:36 | disposition home or self-care (01) ==
LOC: HO.US 07:35
PROVIDERS: PCP Nurse Practitioner Family; Visit Provider Nurse Practitioner Family
DX: N20.0 Calculus of kidney (principal)
CPT/HCPCS: 76775

== ENCOUNTER 2024-06-16 08:29 | Outpatient (REF) | payer OTHER, SELFPAY ==
[2024-06-16 09:32] LABS: Prostate Specific Antigen 1.91 ng/mL (<0.05-4.0)
== END 2024-06-16 08:30 | disposition home or self-care (01) ==
LOC: HO.LAB 08:29
PROVIDERS: Absent Provider Nurse Practitioner Family; PCP Nurse Practitioner Family; Visit Provider Nurse Practitioner Family
DX: R97.20 Elevated prostate specific antigen [PSA] (principal); Z12.5 Encounter for screening for malignant neoplasm of prostate
CPT/HCPCS: 36415; 84153

== ENCOUNTER 2024-06-20 13:31 | Outpatient (AMB) | payer OTHER, SELFPAY ==
--- NOTE | 2024-06-20 13:32 | MHC.OFFVIS ---
Intake Visit Reasons: 1yr follow up/PSA Intake Note: Patient presents today for tele visit follow up on: PSA and Ultrasound Results Imaging Completed: 06/03/24 PSA: 1.91 Urology Medication: Vitamin B6 Blood Thinner: none Billiard Player Required: No Accompanied by: Self / Same As Patient Allergies No Known Allergies Allergy (Verified 06/20/24 13:38) Medication List - Last Reconciled 06/20/24 by ANTOINETTE Huang-JOI clotrimazole-betamethasone 1-0.05 % 1 appl topical BID 2 weeks losartan 50 mg PO DAILY 90 days meloxicam 15 mg PO DAILY PRN 30 days pyridoxine (vitamin B6) 100 mg PO DAILY 90 days HPI Comments Details: Ryne is a pleasant 54-year-old male patient of Dr. Vásquez. He has a past medical history of anxiety and depression. He is being followed up on today via telehealth for his elevated PSA and nephrolithiasis. In discussion with the patient today her reports since last office visit here one year ago he has been doing and feeling well. Recent renal imaging results reviewed with the patient today. Right kidney with no calculi or hydronephrosis. Left kidney with no hydronephrosis 1.0 cm left lower pole cyst with 0.7 cm calculus versus cluster of calculi. 0.8 upper pole cyst with 0.5 mural echogenic focus characteristic of calcification. When asked he currently denies any bothersome urinary issues or concerns. He reports compliance with vitamin B6 and drinking plenty of water daily. He currently denies any bothersome urinary issues or concerns. Recent PSA results reviewed with the patient today as noted and trended below PSAs: 06/16 1.8, 09/19 4.5, 11/20 1.7, 06/21 1.9 When asked he denies urinary urgency, urinary frequency, incontinence, hematuria, dysuria, foul smelling urine, changes to urinary stream, flank pain, fever, and or chills. He does report getting up 1-2 times per night to void however does not find this bothersome. He is happy with his current voiding parameters. He otherwise offers no other issues or concerns at this time. In office urinalysis results reviewed with the patient today. [facility] Medical History Tinea cruris Nocturia History of depression History of anxiety Surgical History Hx of colonoscopy Family History Father No problems noted. Mother No problems noted. Social History Household Members: None Housing: House Alcohol intake: current Alcohol intake frequency: a few times a week Alcohol type: hard liquor Patient Tobacco Use Status: Former Tobacco user e-Cigarette/Vaping Use: Never Used Second Hand Smoke Exposure: No service: Yes Current occupational status: retired Current occupation: [employer] Current occupational exposures/hazards: Yes Cognitive needs: No Hearing needs: No Vision needs: No Review of Systems Const All systems reviewed & are unremarkable except as noted in HPI and below Reports no additional complaints Eyes Reports no additional complaints ENT Reports no additional complaints Card Reports no additional complaints Resp Reports no additional complaints GI Reports no additional complaints Reports as per HPI Musc Reports no additional complaints Neuro Reports no additional complaints Psych Reports as per HPI Endo Reports no additional complaints Chris/Lymph Reports no additional complaints Aller/Immun Reports no additional complaints Physical Exam Const General: cooperative, healthy appearing, comfortable, no acute distress, well developed, alert and awake Orientation/consciousness: patient oriented x3 Resp Effort & Inspection: normal respiratory effort and able to speak in complete sentences Neuro General: patient oriented x3 Psych Appearance: grossly normal and well kempt Mental Status: mental status grossly normal Speech and movement: Clear speech present Affect: normal affect Attitude: cooperative Thought process: Normal thought process present Thought content: Normal thought content present Insight: Fair insight present (Psych) Judgement: Fair judgement present (Psych) Telehealth Telehealth Telehealth Platform: [facility] Location of provider rendering services: practice address Location of patient: address on file Patient Identification confirmed using: Name, : Yes Telehealth method: video Patient verbally consented to treatment: Yes Patient verbally consented to billing insurance company: Yes Patient informed of any privacy concerns related to visit: Yes Minutes spent on Phone/Video with Pt.: 15 Results Reviewed Results Reviewed: Date of Service: 06/03/24 EXAMINATION: US RETROPERITONEAL LIMITED (RENAL ONLY) FINDINGS: RIGHT KIDNEY: 10.7 x 6.3 x 5.0 cm (SAG x AP x TRV). No hydronephrosis. No renal calculi. Renal cortical thickness is normal. Limited visualization. LEFT KIDNEY: 10.6 x 5.7 x 5.8 cm (SAG x AP x TRV). No hydronephrosis. Renal cortical thickness is normal. Limited visualization. 1.0 x 0.9 x 0.9 cm left lateral lower pole cyst with 0.7 cm calculus versus cluster of calculi. 0.8 x 0.8 x 0.8 cm upper pole cyst with 0.5 cm mural echogenic focus characteristic of a calcification. 0.5 cm [id number] pole echogenic focus characteristic of a calculus. Previous study of 06/04/2023 demonstrated a 0.3 cm upper is 0.3 cm lower pole calculi. IMPRESSION: 1. Left renal cysts with calcifications. CT scan recommended for further characterization. 2. Left renal calculi. No hydronephrosis. Assessment & Plan Assessment & Plan (1) Bilateral nephrolithiasis: Code(s): N20.0 - Calculus of kidney Category: Medical (2) Renal cyst: Code(s): N28.1 - Cyst of kidney, acquired Category: Medical Plan Recent renal imaging results reviewed with the patient today; as noted above. Discussed, educated, and stressed the importance of adequate hydration relation to nephrolithiasis as well as overall health and well-being. Continue vitamin B6 as discussed and prescribed. Discussed surveillance monitoring of renal cyst. Recent PSA results reviewed with the patient today; as noted above. Patient currently denies any bothersome urinary issues. He is happy with current voiding parameters. Will obtain renal ultrasound in 6 months Follow-up in 6 months with imaging to be completed prior; or sooner with any issues, concerns, and or questions. Orders: Orders US renal BI 6 Months N20.0 - Calculus of kidney, N28.1 - Cyst of kidney, acquired Patient Instructions: The patient had an opportunity to ask questions regarding the treatment plan. All questions were answered. Physical exam, labs, and imaging were discussed and reviewed in detail. As well as risks, benefits, and discussion of treatment choices. No major barriers to understanding were identified. The patient expressed understanding and agreement with the above treatment plan. The patient was made aware they should contact our office by phone for worsening of their current condition, the appearance of new symptoms, or with any questions or concerns. Compliance is encouraged with any medications and follow up testing that is ordered. It is a privilege to be allowed the opportunity to participate in? your urological care.? Again, if you have any questions or concerns If you have any questions or concerns please do not hesitate to contact me. The office is [phone]. This note is constructed using voice recognition software. While every effort has been made to ensure accuracy airplane tester errors may have been included. Yours sincerely, MY Huang Coding Level of Care Code Tele Est Pt Level 3 (11968) Diagnoses Bilateral nephrolithiasis N20.0 Renal cyst N28.1
== END 2024-06-20 14:12 | disposition home or self-care (01) ==
LOC: HO.HUSH 13:31
PROVIDERS: PCP Nurse Practitioner Family; Visit Provider Nurse Practitioner Family
DX: N20.0 Calculus of kidney (principal); N28.1 Cyst of kidney, acquired
CPT/HCPCS: 99213

== ENCOUNTER → 2024-06-20 13:31 | Outpatient (BNVA) | payer OTHER, SELFPAY | PROVIDERS: PCP Nurse Practitioner Family; Visit Provider Nurse Practitioner Family ==

== ENCOUNTER 2024-07-21 07:35 | Outpatient (AMB) | payer OTHER, SELFPAY ==
--- NOTE | 2024-07-21 07:41 | MHC.PC.OV ---
Vital Signs 07/21/24 07:43 Height 5 ft 9 in Weight 159 lb BMI 23.5 BP 104/78 Blood Pressure Location Lt brachial Position Sitting Pulse 61 Pulse Source Pulse Oximeter Pulse Oximetry (%) 98 Oxygen Delivery Method Room Air Intake Visit Reasons: PE Intake Note: Pt is here today for his PE Allergies No Known Allergies Allergy (Verified 07/21/24 08:15) Medication List - Last Reconciled 07/21/24 by MY Holden clotrimazole-betamethasone 1-0.05 % 1 appl topical BID 2 weeks losartan 50 mg PO DAILY 90 days meloxicam 15 mg PO DAILY PRN 30 days pyridoxine (vitamin B6) 100 mg PO DAILY 90 days Tobacco use date assessed: 07/21/24 Dental Screening Dental Screen Date: 07/21/24 Did you have a dental visit in the last 12 months?: Yes Did you have a dental problem in the last 6 months where you did not have access to dental care?: No Was dental information given to patient?: Patient has dentist HPI PE HPI Details Pt is here for a PE. Will order labs. Colon screen is up to date. PSA is up to date, sees urology. Denies dribbling with urination, weak stream, and frequent nocturia. [facility] Medical History Tinea cruris Nocturia History of depression History of anxiety Surgical History Hx of colonoscopy Family History Father No problems noted. Mother No problems noted. Social History Household Members: None Housing: House Alcohol intake: current Alcohol intake frequency: a few times a week Alcohol type: hard liquor Patient Tobacco Use Status: Former Tobacco user e-Cigarette/Vaping Use: Never Used Second Hand Smoke Exposure: No service: Yes Current occupational status: retired Current occupation: [employer] Current occupational exposures/hazards: Yes Cognitive needs: No Hearing needs: No Vision needs: No Questionnaire PHQ-9 Over the last 2 weeks, how often have you been bothered by any of the following problems? 1. Little interest or pleasure in doing things: not at all 2. Feeling down, depressed, or hopeless: not at all 3. Trouble falling or staying asleep, or sleeping too much: not at all 4. Feeling tired or having little energy: not at all 5. Poor appetite or overeating: not at all 6. Feeling bad about yourself - or that you are a failure or have let yourself or your family down: not at all 7. Trouble concentrating on things, such as reading the newspaper or watching television: not at all 8. Moving or speaking so slowly that other people could have noticed. Or the opposite - being so fidgety or restless that you have been moving around a lot more than usual: not at all 9. Thoughts that you would be better off or of hurting yourself in some way: not at all Total score: 0 Depression Screening Interpretation: Negative Depression Screening Done: Yes 75685 - PHQ-9 Billing: Yes Source: Developed by Drs. Jj Sanches, Ines Browne, Yang Crocker and colleagues, with an educational vimal from [employer]. Thrive Questionnaire Date Thrive assessed: 07/21/24 I am a: Patient What is your living situation today?: I have a steady place to live Within the past 12 months, did the food you bought not last and you didn't have the money to get more?: Never true Within the past 12 months, did you worry whether your food would run out before you got money to buy more?: Never true Do you have trouble paying for medicines?: No Do you have trouble getting transportation to medical appointments?: No Do you have trouble paying your heating and electricity bill?: No Do you have trouble taking care of your child, family member or friend?: No Do you have trouble with day-to-day activities such as bathing, preparing meals, shopping, managing finances, etc.?: No Are you interested in more education?: No Please select the resources that you would like help with: None Currently or been in a relationship where the following occur: No concerns reported THRIVE Score: 0 AUDIT C Alcohol Use Questionnaire (AUDIT-C) 1. How often do you have a drink containing alcohol?: Never Total Score: 0 JUN-7 AMB Questionnaire JUN-7 Date JUN - 7 assessed: 07/21/24 Feeling nervous, anxious, or on edge: 0 = Not at all Not being able to stop or control worryin = Not at all Worrying too much about different things: 0 = Not at all Trouble relaxin = Not at all Being so restless that it is hard to sit still: 0 = Not at all Becoming easily annoyed or irritable: 0 = Not at all Feeling afraid as if something awful might happen: 0 = Not at all Total JUN-7 score (0-4 normal; 5-9 mild; 10-14 moderate; 15-21 severe): 0 Source: Developed by Drs. Jj Sanches, Ines Browne, Yang Crocker and colleagues, with an educational vimal from [employer]. JUN-7 Assessment Billing JUN-7 Assessment Tool: JUN-7 Assessment [id number] Review of Systems Const Denies chills and Denies fever(s) Eyes Denies blurry vision ENT Denies vertigo, Denies dizziness and Denies sore throat Card Denies chest pain at rest, Denies chest pain with activity, Denies diaphoresis, Denies dyspnea and Denies dyspnea on exertion Resp Denies cough, Denies dyspnea, Denies dyspnea on exertion and Denies wheezing GI Denies abdominal pain, Denies melena, Denies hematochezia, Denies constipation, Denies diarrhea and Denies loose stools Denies hematuria Musc Denies numbness and Denies tingling Skin/Breast Denies lesions Neuro Denies vertigo, Denies dizziness, Denies numbness and Denies tingling Psych Denies anxiety, Denies depression, Denies homicidal ideation, Denies suicidal ideation and Denies other (substance abuse) Aller/Immun Denies wheezing Physical exam (Primary Care) Vital Signs: Last Vital Signs Pulse 61 07/21/24 07:43 BP 104/78 07/21/24 07:43 Pulse Ox 98 07/21/24 07:43 Oxygen Delivery Method Room Air 07/21/24 07:43 BMI result Body Mass Index 23.5 Tobacco/Smoking Status: Tobacco use Status Tobacco use date assessed 07/21/24 07/21/24 07:45 Patient Tobacco Use Status Former Tobacco user 07/21/24 07:43 e-Cigarette/Vaping Use Never Used 07/21/24 07:43 PHQ-9: PHQ-9 Score PHQ-9: Total score 0 07/21/24 07:43 Depression Screening Interpretation: Negative Thrive Assessment: Date of Thrive Assessment Date Thrive assessed 07/21/24 07/21/24 07:45 Currently or been in a relationship where the following occur: No concerns reported Const General: cooperative Nutritional Appearance: well nourished Orientation/consciousness: patient oriented x3 HENMT Head: Yes normal to inspection, Yes normocephalic and Yes atraumatic Ears: TM's normal bilaterally Eyes General: appearance normal, both eyes and all related structures Alignment and Position: alignment normal and position normal Neck Neck: Yes normal visual inspection, Yes no lymphadenopathy and Yes supple Resp Effort & Inspection: normal respiratory effort Auscultation: clear to auscultation bilaterally Cardio Rate: regular rate Rhythm: regular rhythm Heart sounds: S1 normal heart sound present, S2 normal heart sound present and no murmurs GI Palpation (GI): Soft to palpation and nontender Auscultation: normal bowel sounds Male General Exam: Yes normal external exam Penis: normal penis Scrotum: scrotum normal, testes descended bilaterally and no inguinal hernias Testes: no testicular mass Skin Rashes: no rashes Neuro General: patient oriented x3, moves all extremities, no focal motor deficits and deep tendon reflexes 2+ bilaterally Romberg Test: Negative Psych Appearance: grossly normal Mental Status: mental status grossly normal Speech and movement: Normal speech and movement present Affect: normal affect Attitude: cooperative Thought process: Normal thought process present Thought content: Normal thought content present Insight: Good insight present (Psych) Judgement: Good judgement present (Psych) Assessment and Plan Assessment & Plan (1) Physical exam: Code(s): Z00.00 - Encounter for general adult medical examination without abnormal findings Plan The patient agreed to the use of a medical donation professional for this encounter. Scribed for MY Vang by Debra Headley medical donation professional, on 07/21/2024 at 07:55 EST. Orders: Orders Complete Blood Count Auto Diff Today Z00.00 - Encounter for general adult medical examination without abnormal findings Lipid Panel Today Z00.00 - Encounter for general adult medical examination without abnormal findings Comprehensive [place]. Panel Fast Today Z00.00 - Encounter for general adult medical examination without abnormal findings TSH reflex Free T4 Today Z00.00 - Encounter for general adult medical examination without abnormal findings UA CC w/rflx Micro + Cult Today Z00.00 - Encounter for general adult medical examination without abnormal findings Coding Level of Care Code Est Pt Prev Care 40-64y(81427) Diagnoses Physical exam Z00.00 Additional Codes JUN-7 Assessment Billing - JUN-7 Assessment Tool: JUN-7 Assessment [id number] ([id number])
[2024-07-21 07:43] VITALS: BP 104/78; PULSE 61; O2SAT 98; BMI 23.5
== END 2024-07-21 10:01 | disposition home or self-care (01) ==
PROVIDERS: PCP Nurse Practitioner Family; Visit Provider Nurse Practitioner Family
DX: Z00.00 Encounter for general adult medical examination without abnormal findings (principal)

== ENCOUNTER → 2024-07-21 07:35 | Outpatient (BNVA) | payer OTHER, SELFPAY | PROVIDERS: PCP Nurse Practitioner Family; Visit Provider Nurse Practitioner Family | DX: Z00.00 Encounter for general adult medical examination without abnormal findings (principal) | CPT/HCPCS: 96127 ==

== ENCOUNTER 2024-12-09 07:22 | Outpatient (REF) | payer OTHER, SELFPAY ==
[2024-12-09 07:40] LABS: MANUAL DIFF FLAG NO
[2024-12-09 08:19] LABS: Basophils Absolute Auto 0.1 X10*3/uL (0.0-0.2); Basophils Percent Auto 1.2 % (0-2); Eosinophils Absolute Auto 0.1 X10*3/uL (0.0-0.4); Eosinophils Percent Auto 3.5 % (0-4); Hematocrit 42.4 % (42.0-52.0); Hemoglobin 15.1 g/dl (14.0-18.0); Imm Gran Abs Auto 0.01 X10*3/uL (0.00-0.03); Imm Gran Pct Auto 0.2 % (0.0-0.4); Lymphocytes Percent Auto 25.6 % (20-40); Mean Corpuscular HGB Conc 35.6 g/dl (31.0-36.0); Mean Corpuscular Hemoglobin 31.9 pg (27.0-33.0); Mean Corpuscular Volume 89.5 fL (80.0-98.0); Mean Platelet Volume 9.5 fL (9.4-12.4); Monocytes Absolute Auto 0.4 X10*3/uL (0.1-1.2); Monocytes Percent Auto 10.4 % (2-11); Neutrophils Absolute Auto 2.4 x10*3/uL (2.0-8.3); Neutrophils Percent Auto 59.1 % (45-73); Platelet Count 307 X10*3/uL (160-400); Red Blood Count 4.74 X10*6/uL (4.60-5.80); Red Cell Distribution Width 12.1 % (11.0-16.0)
[2024-12-09 09:22] LABS: Alanine Aminotransferase 31 U/L (0-40); Albumin Level 4.3 g/dL (3.5-5.0); Anion Gap 10 (12-20); Aspartate Amino Transferase 32 U/L (5-37); Bilirubin Total 0.7 mg/dL (0.0-1.0); Blood Urea Nitrogen 13 mg/dL (9-16); Carbon Dioxide 28 mmol/L (22-29); Chloride 107 mmol/L (96-108); Cholesterol 191 mg/dL (<200); Estimated Glomerular Filt Rate > 60; Glucose Fasting 106 mg/dL (60-99); HDL Cholesterol 66 mg/dL (>40); LDL Cholesterol Calculated 107 mg/dL (<100); Sodium 141 mmol/L (135-145); Total Protein 7.1 g/dL (6.5-8.0); Triglycerides 92 mg/dL (<150)
[2024-12-09 09:37] LABS: Alkaline Phosphatase 58 U/L (39-117)
[2024-12-09 09:46] LABS: TSH reflex Free T4 1.23 uIU/mL (0.32-4.0)
== END 2024-12-09 07:23 | disposition home or self-care (01) ==
LOC: HO.LAB 07:22
PROVIDERS: PCP Nurse Practitioner Family; Visit Provider Nurse Practitioner Family
DX: Z00.00 Encounter for general adult medical examination without abnormal findings (principal)
CPT/HCPCS: 36415; 80053; 80061; 84443; 85025

== ENCOUNTER 2024-12-11 08:07 | Outpatient (REF) | payer OTHER, SELFPAY ==
--- OUTSIDE RECORDS SUMMARY | 2024-12-11 08:11 | XMS_ITS | Continuity of Care Document ---
Author Name [facility] Organization [facility] Care Team Providers Care Vacuum Caster Name Role Phone [facility] Unavailable Unavailable Problems Combined list of problems from Department of Defense and Veterans Affairs facilities. It does not include entries that were removed or entered in error. Problem Status Onset Date Problem Type Date of Resolution Comments Source limb pain Inactive Condition meds as above [facility] cerumen impaction - left ear Inactive Condition [facility] Medications Combined list of outpatient medications from Department of Defense and Veterans Affairs facilities.Medications provided include 1) outpatient medications from the last 15 months, and 2) patient-reported medications. Medication Details Route Status Patient Instructions Prescription Expires Prescription Number Last Dispense Date Ordering Provider Order Date Order Qty Source betamethaso ne dipropionat e 0.05% topical cream betameth asone dipropio ana rosa 0.05% topical cream Start Date: 12/01/21 Status: Ordered Ordered No Facilit y Access clotrimazol e 1% topical cream clotrima zole 1% topical cream Start Date: 11/30/21 Status: Ordered Ordered No Facilit y Access zoster vaccine, inactivated adjuvanted intramuscul ar injection zoster vaccine, inactiva ladi adjuvant ed intramus cular injectio n Start Date: 12/13/21 Status: Ordered Ordered No Facilit y Access Immunizations Combined list of available immunizations from the Department of Defense and Veterans Affairs facilities. Immunization Series Date Given Administered By Site Reaction Lot Number CVX Code Drug Driver Utility Worker Status Comments Source zoster recombinant 2021 BOGDASARIAN, () Not Given zoster recombina nt DoD zoster recombinant 2021 BOGDASARIAN, () Not Given zoster recombina nt DoD zoster vaccine, inactivated 2021 187 [employer] complet ed zoster vaccine, inactivat ed 12/08/21 Given Ambulat ory Pharmac y zoster recombinant 2021 BOGDASARIAN, () Not Given zoster recombina nt DoD COVID Vaccine Pfizer 2020 [id number] PFI[employer] complet ed COVID Vaccine Pfizer 09/16/21 Given Ambulat ory Pharmac y influenza, injectable, quadrivalent 2020 [id number] GlaxoSmithK[employer] ne complet ed influenza , injectabl e, quadrival ent 08/13/21 Given Ambulat ory Pharmac y COVID Vaccine Moderna 2020 [id number] complet ed COVID Vaccine Moderna 01/09/21 Given Ambulat ory Pharmac y COVID Vaccine Moderna 2020 [id number] complet ed COVID Vaccine Moderna 12/14/20 Given Ambulat ory Pharmac y influenza, injectable, quadrivalent- pf 2019 [id number] 150 [employer] complet ed influenza , injectabl e, quadrival ent-pf 09/02/20 Given Ambulat ory Pharmac y influenza, injectable, quadrivalent- pf 2018 [id number] 150 [employer] complet ed influenza , injectabl e, quadrival ent-pf 08/03/19 Given Ambulat ory Pharmac y tetanus, diphtheria, acellular pertu is 2018 [id number] tet[facility], diphtheri a, acellular pertussis 04/05/19 Given Ambulat ory Pharmac y influenza, injectable, quadrivalent 2017 [id number] [employer] complet ed influenza , injectabl e, quadrival ent 08/21/18 Given Ambulat ory Pharmac y measles/mumps /rubella virus vaccine 2017 [id number] [employer] Inc complet ed measles/m umps/rube lla virus vaccine 03/31/18 Given Ambulat ory Pharmac y typhoid Vi capsular polysaccharid e vac 2017 [id number] sanofi pasteur complet ed typhoid Vi capsular polysacch aride vac 03/31/18 Given Ambulat ory Pharmac y measles/mumps /rubella virus vaccine 2017 [id number] [employer] Inc complet ed measles/m umps/rube lla virus vaccine 03/02/18 Given Ambulat ory Pharmac y Influenza, inj, MDCK, quadrivalent- pf 2016 [id number] [employer] complet ed Influenza , inj, MDCK, quadrival ent-pf 08/12/17 Given Ambulat ory Pharmac y influenza, seasonal, injectable-pf 2015 [id number] [employer] complet ed influenza , seasonal, injectabl e-pf 08/12/16 Given Ambulat ory Pharmac y typhoid Vi capsular polysaccharid e vac 2015 [id number] 101 sanofi pasteur complet ed typhoid Vi capsular polysacch aride vac 01/21/16 Given Ambulat ory Pharmac y influenza, seasonal, injectable-pf 2014 [id number] 140 [employer] complet ed influenza , seasonal, injectabl e-pf 08/01/15 Given Ambulat ory Pharmac y hepatitis B adult vaccine 2014 [id number] [employer]ck [employer] Company Inc complet ed hepatitis B adult vaccine 02/27/15 Given Ambulat ory Pharmac y influenza, seasonal, injectable 2013 [id number] [employer] comple t ed influenza , seasonal, injectabl e 08/01/14 Given Ambulat ory Pharmac y hepatitis B adult vaccine 2013 [id number] [employer] Inc complet ed hepatitis B adult vaccine 07/04/14 Given Ambulat ory Pharmac y hepatitis B adult vaccine 2013 [id number] [employer] Inc complet ed hepatitis B adult vaccine 04/04/14 Given Ambulat ory Pharmac y influenza, seasonal, injectable 2012 [id number] 141 [employer] complet ed influenza , seasonal, injectabl e 08/30/13 Given Ambulat ory Pharmac y influenza, seasonal, injectable 2011 [id number] 141 [employer] complet ed influenza , seasonal, injectabl e 08/10/12 Given Ambulat ory Pharmac y influenza, seasonal, injectable-pf 2010 [id number] 140 sanofi pasteur complet ed influenza , seasonal, injectabl e-pf 07/29/11 Given Ambulat ory Pharmac y influenza virus vaccine,split 2009 [id number] 15 sanofi pasteur complet ed influenza virus vaccine,s plit 10/02/10 Given Ambulat ory Pharmac y influenza virus vaccine, live [id number] comple t ed influenza virus vaccine, live 07/31/09 Given Ambulat ory Pharmac y tetanus, diphtheria, acellular pertu is 2008 [id number] 115 sanofi pasteur complet ed tetanus, diphtheri a, acellular pertussis 02/27/09 Given Ambulat ory Pharmac y influenza virus vaccine, live 2007 [id number] 111 [employer] comple t ed influenza virus vaccine, live 08/01/08 Given Ambulat ory Pharmac y influenza virus vaccine, live 2006 [id number] 111 [employer] comple t ed influenza virus vaccine, live 09/28/07 Given Ambulat ory Pharmac y influenza virus vaccine,split 2005 [id number] 15 sanofi pasteur complet ed influenza virus vaccine,s plit 09/16/06 Given Ambulat ory Pharmac y influenza virus vaccine,split 2005 [id number] 15 sanofi pasteur complet ed influenza virus vaccine,s plit 11/05/05 Given Ambulat ory Pharmac y typhoid Vi capsular polysaccharid e vac 2003 [id number] 101 sanofi pasteur complet ed typhoid Vi capsular polysacch aride vac 04/15/04 Given Ambulat ory Pharmac y anthrax vaccine 2003 [id number] [employer] complet ed anthrax vaccine 02/27/04 Given Ambulat ory Pharmac y anthrax vaccine 2002 [id number] [employer] complet ed anthrax vaccine 08/29/03 Given Ambulat ory Pharmac y tuberculin purified protein derivative 2002 [id number] 96 sanofi pasteur complet ed tuberculi n purified protein derivativ e 08/01/03 Given Ambulat ory Pharmac y influenza virus vaccine, whole virus [id number] [facility] complet ed influenza virus vaccine, whole virus 08/01/03 Given Ambulat ory Pharmac y vaccinia (smallpox) vaccine [id number] [facility] complet ed vaccinia (smallpox ) vaccine 11/24/02 Given Ambulat ory Pharmac y anthrax vaccine 2001 [id number] 24 [employer] complet ed anthrax vaccine 10/04/02 Given Ambulat ory Pharmac y tuberculin purified protein derivative 2001 [id number] 96 sanofi pasteur complet ed tuberculi n purified protein derivativ e 08/03/02 Given Ambulat ory Pharmac y influenza virus vaccine, whole virus 2001 [id number] 16 sanofi pasteur complet ed influenza virus vaccine, whole virus 08/03/02 Given Ambulat ory Pharmac y typhoid Vi capsular polysaccharid e vac 2001 [id number] sanofi pasteur complet ed typhoid Vi capsular polysacch aride vac 04/06/02 Given Ambulat ory Pharmac y tuberculin purified protein derivative 2000 [id number] 96 sanofi pasteur complet ed tuberculi n purified protein derivativ e 08/31/01 Given Ambulat ory Pharmac y influenza virus vaccine, whole virus 2000 [id number] 16 sanofi pasteur complet ed influenza virus vaccine, whole virus 08/31/01 Given Ambulat ory Pharmac y influenza virus vaccine, whole virus [id number] [facility] complet ed influenza virus vaccine, whole virus 11/04/00 Given Ambulat ory Pharmac y tuberculin purified protein derivative 1999 [id number] 96 [employer] complet ed tuberculi n purified protein derivativ e 07/07/00 Given Ambulat ory Pharmac y anthrax vaccine 1999 [id number] [employer] complet ed anthrax vaccine 04/22/00 Given Ambulat ory Pharmac y anthrax vaccine 1999 [id number] [employer] complet ed anthrax vaccine 03/16/00 Given Ambulat ory Pharmac y anthrax vaccine 1999 [id number] 24 [employer] complet ed anthrax vaccine 03/02/00 Given Ambulat ory Pharmac y tuberculin purified protein derivative 1999 [id number] 96 [employer] complet ed tuberculi n purified protein derivativ e 02/05/00 Given Ambulat ory Pharmac y typhoid vaccine, parenteral 1999 [id number] 41 sanofi pasteur complet ed typhoid vaccine, parentera l 02/05/00 Given Ambulat ory Pharmac y hepatitis A adult vaccine 1999 [id number] [employer] Inc complet ed hepatitis A adult vaccine 11/05/99 Given Ambulat ory Pharmac y influenza virus vaccine, whole virus [id number] [address] [facility] complet ed influenza virus vaccine, whole virus 09/04/99 Given Ambulat ory Pharmac y yellow fever vaccine 1998 [id number] 37 sanofi pasteur complet ed yellow fever vaccine 09/04/99 Given Ambulat ory Pharmac y meningococcal polysaccharid e (MPSV4) [id number] 32 sanofi pasteur complet ed meningoco ccal polysacch aride (MPSV4) 03/08/99 Given Ambulat ory Pharmac y tetanus-dipht h toxoids (Td) adult/adol 19985038 [id number] 09 sanofi pasteur complet ed tetanus-d iphth toxoids (Td) adult/ado l 03/01/99 Given Ambulat ory Pharmac y hepatitis A adult vaccine 1998 [id number] [employer] complet ed hepatitis A adult vaccine 02/25/99 Given Ambulat ory Pharmac y tuberculin purified protein derivative 1998 [id number] [email or web address] complet ed tuberculi n purified protein derivativ e 02/25/99 Given Ambulat ory Pharmac y influenza virus vaccine, whole virus 19984825 [id number] 16 sanofi pasteur complet ed influenza virus vaccine, whole virus 12/05/98 Given Ambulat ory Pharmac y influenza virus vaccine, whole virus 1996 16 complet ed influenza virus vaccine, whole virus 08/29/97 Given Ambulat ory Pharmac y typhoid, parenteral, AKD 1996 53 complet ed typhoid, parentera l, AKD 11/29/96 Given Ambulat ory Pharmac y yellow fever vaccine 1988 37 complet ed yellow fever vaccine 06/29/89 Given Ambulat ory Pharmac y poliovirus vaccine, live, oral 1988 02 complet ed polioviru s vaccine, live, oral 04/28/89 Given Ambulat ory Pharmac y tetanus-dipht h toxoids (Td) adult/adol 1988 09 complet ed tetanus-d iphth toxoids (Td) adult/ado l 02/26/89 Given Ambulat ory Pharmac y Encounters Combined list of: 1) Encounters from Department of Veterans Affairs facilities going backup to the last 18 months, not all VA inpatient encounters are included; 2) Encounters from the Department of Defense facilities going backup to 280 months. Location Location Details Encounter Type Encounter Number Reason For Visit Attending Provider ADM Date DC Date Status Disposition Source [address] [place] [address] Group([facility]) OUTPATIENT [id number] possibl e ear infecti on DAMARI GARCIA 09/30 Released w/o Limitations [employer]([facility]) [employer]([facility] OUTPATIENT [id number] left knee px YI PARRA 07/24 Released with Work/Duty Limitations [employer]([facility]) [facility] [place] [address](AFN G [address]) OUTPATIENT [id number] BRISEIDA IZAGUIRRE 03/04 Released w/o Limitations [facility] [place] [address](A FNG [address]) [facility] [place] [address](AFN G [address]) OUTPATIENT [id number] Notes Entered by: LYNNETTE COLVIN 25 Jul 2017 1311 ------- ------- ------- ------- -- ANNUAL AUDIOGR AM MARTHA SILVERMAN 07/25 Released w/o Limitations [facility] [place] [address](A FNG [address]) [facility] [place] [address](AFN G [address]) OUTPATIENT [id number] Notes Entered by: BRENDA SILVERMAN 29 Nov 2017 1328 ------- ------- ------- ------- -- MARTHA TAVERA 11/29 Released w/o Limitations [facility] [place] [address](A FNG [address]) [facility] [place] [address](AFN G [address]) OUTPATIENT [id number] Notes Entered by: KADEN ESCALANTE 21 Dec 2017 1348 ------- ------- ------- ------- -- EL Rincon 12/21 Released w/o Limitations [facility] [place] [address](A FNG [address]) [facility] [place] [address](AFN G [address] S[address]PH) OUTPATIENT [id number] Notes Entered by: KADEN ESCALANTE 16 Apr 2018 1407 ------- ------- ------- ------- -- [facility] loyment / Occupat [facility] SILVERMAN MARTHA CLIFFORD 04/16 Released w/o Limitations [facility] [place] [address](A FNG [address]PH) [facility] [place] [address](AFN G [address]) OUTPATIENT [id number] Notes Entered by: KADEN ESCALANTE 27 Dec 2018 1454 ------- ------- ------- ------- -- Audiogr am JADEN WALKER 12/27 Released w/o Limitations [facility] [place] [address](A FNG [address]) [facility] [place] [address](AFN G [address]) OUTPATIENT [id number] Notes Entered by: PALLAVI TREJO 08 Nov 2019 1054 ------- ------- ------- ------- -- PALLAVI ENCISO 11/08 [facility] [place] [address](A FNG [address]) [facility] [place] [address](AFN G [address]) OUTPATIENT [id number] Notes Entered by: GEOVANI MILLAN 26 Dec 2019 1413 ------- ------- ------- ------- -- Annual Audiogr am LAYLA MAYORGA 12/26 [facility] Limitations [facility] [place] [address](A FNG [address]) [facility] [place] [address](AFN G [address]) OUTPATIENT [id number] Notes Entered by: EL BRASHER 02 Feb 2021 1153 ------- ------- ------- ------- -- EL DALLAS 02/02 Released w/o Limitations [facility] [place] [address](A FNG [address]FM) [facility], [place] [address](AFN G [address] Sq[address]FM) OUTPATIENT [id number] Notes Entered by: EL BRASHER 07 Feb 2022 1448 ------- ------- ------- ------- -- EL DALLAS 02/07 Released w/o Limitations [facility] Treatme nt Facilit y, [place] [address](A FNG [address] S[address]FM) [facility], [place] [address](AFN G [address] Med Sq-FM) TELE CONSULT [id number] EL BRASHER 03/09 [facility] [place] [address](A FNG [address] Med Sq-FM) [facility], [place] [address](AFN G [address] Sq-FM) OUTPATIENT [id number] Notes Entered by: EL BRASHER 09 May 2022 0928 ------- ------- ------- ------- -- Left wrist pain EL BRASHER 05/09 Released w/o Limitations [facility] [place] [address](A FNG [address] Med Sq[facility]FM) [facility], [place] [address](AFN G [address] Med Sq-FM) TELE CONSULT [id number] EL BRASHER 11/08 [facility] [place] [address](A FNG [address] Med Sq-FM) [facility] [place] [address](AFN G [address] Med Sq-FM) OUTPATIENT [id number] Notes Entered by: EL BRASHER 03 Dec 2022 1349 ------- ------- ------- ------- -- EL MARKS 12/03 Released w/o Limitations [facility] [place] [address](A FNG [address] Med Sq[facility]FM) Procedures Combined list of: 1) Procedures from Department of Veterans Affairs facilities going back up to thelast 18 months, not all [place] non-surgical procedures are included; 2) All procedures from the Department of Defense facilities. Procedure Procedure Type Code Date Perfomer Comments Sourc e No data available for this section Ambulatory Pharmacy REMOVAL IMPACTED CERUMEN REQUIRING INSTRUMENTATION, UNILATERAL 09/30/2004 [facility] Cerumen Removal Left Ear Irrigation DAMARI GARCIA [facility] Social History Combined list of available smoking, tobacco, and other social history from Department of Defense and Veterans Affairs facilities. Social History Type Response Date Comment Sourc e This section is an empty social history section. DoD Assessment and Plan Combined list of future care activities from Department of Defense and Veterans Affairs facilities (e.g., assessment and plan notes, appointments, orders, and referrals). Additional future care activities may be listed in the Plan of Care section. Result Assessment and Plan Date Source Assessment and Plan No data available for this section 12/11/2024 Ambulatory Pharmacy Functional Status Combined list of recent functional and cognitive assessments recorded at Department of Defense and Veterans Affairs (VA).VA Functional Turner Measurement (FIM) Scale: 1 = Total Assistance (Subject = 0% +), 2 = Maximal Assistance (Subject = 25% +), 3 = Moderate Assistance (Subject = 50% +), 4 = Minimal Assistance (Subject = 75% +), 5 = Supervision, 6 = Modified Turner (Device), 7 = Complete Turner (Timely, Safely). Assessment Date/Time Source Assessment Type Assessment Skill Assessment Score Assessment Details No data available for this section
[2024-12-11 08:14] LABS: Appearance Urine Clear; Color Urine Yellow; Glucose Urine UA Negative (Negative); Leukocyte Esterase Urine Negative (Negative); Nitrite Urine Negative (Negative); PH 5.5 (5.0-9.0); Urine Blood Negative (Negative); Urine Ketones Negative (Negative); Urine Protein Negative (Neg-Trace)
== END 2024-12-11 08:08 | disposition home or self-care (01) ==
LOC: HO.LNP 08:07
PROVIDERS: Visit Provider Nurse Practitioner Family
DX: I10 Essential (primary) hypertension (principal)
CPT/HCPCS: 81003

== ENCOUNTER 2024-12-16 12:17 | Outpatient (REF) | payer OTHER, SELFPAY ==
--- NOTE | ~2024-12-16 | US_ITS ---
CLINICAL HISTORY: N20.0 - Calculus of kidney US Renal Comparison: None Findings: Right kidney normal size and echotexture, 10.1 cm length. Left kidney normal size and echotexture, 10.4 cm length. There is a 4 mm nonobstructive calculus within the upper pole of the left kidney. There is a 4 mm calculus or parenchymal calcification within the superior left kidney. This is associated with a 8 mm cyst. There is a 4 mm calculus or parenchymal calcification within the lower pole of the left kidney associated with a 1 cm cyst. No collecting system dilatation of either kidney. Normal color Doppler. IMPRESSION: 1. 4 mm nonobstructive calculus within the upper pole of the left kidney. Two additional tiny calculi or parenchymal calcifications within the left kidney also present. This document has been electronically signed by: Susan Mcleod MD on 12/17/2024 17:20:45
== END 2024-12-16 12:18 | disposition home or self-care (01) ==
LOC: HO.US 12:17
PROVIDERS: PCP Nurse Practitioner Family; Visit Provider Nurse Practitioner Family
DX: N20.0 Calculus of kidney (principal); N28.1 Cyst of kidney, acquired
CPT/HCPCS: 76775

== ENCOUNTER → 2024-12-16 12:19 | Outpatient (BNV) | payer OTHER, SELFPAY | PROVIDERS: PCP Nurse Practitioner Family; Visit Provider Radiology Diagnostic Radiology | DX: N20.0 Calculus of kidney (principal) | CPT/HCPCS: 76775 ==

== ENCOUNTER 2025-01-13 07:34 | Outpatient (REF) | payer OTHER, SELFPAY | END 2025-01-13 07:35 | disposition home or self-care (01) | LOC: HO.LAB 07:34 | PROVIDERS: PCP Nurse Practitioner Family; Visit Provider Nurse Practitioner Family | DX: N28.1 Cyst of kidney, acquired (principal); R31.29 Other microscopic hematuria; R97.20 Elevated prostate specific antigen [PSA]; N20.0 Calculus of kidney; Z13.9 Encounter for screening, unspecified | CPT/HCPCS: 81003; 99212 ==

== ENCOUNTER 2025-01-13 07:34 | Outpatient (AMB) | payer OTHER, SELFPAY ==
--- OUTSIDE RECORDS SUMMARY | 2025-01-13 07:38 | XMS_ITS | Continuity of Care Document ---
Author Name [facility] Organization [facility] Care Team Providers Care Boiler Attendant Name Role Phone [facility] Unavailable Unavailable Medications Combined list of outpatient medications from [...] topical cream Start Date: 12/01/21 Status: Ordered Repeat number: 1 Ordered 2021 No Facilit y Access clotrimazol e 1% topical cream clotrima zole 1% topical cream Start Date: 11/30/21 Status: Ordered Repeat number: 1 Ordered 2021 No Facilit y Access zoster vaccine, inactivated adjuvanted intramuscul ar injection zoster vaccine, inactiva ladi adjuvant ed intramus cular injectio n Start Date: 12/13/21 Status: Ordered Repeat number: 1 Ordered 2021 No Facilit y Access Immunizations Combined list of available immunizations from the Department of Defense and Veterans Affairs facilities. Immunization Series Date Given Administered By Site Reaction Lot Number CVX Code Drug Mutuel Machine Operator Status Comments Source zoster vaccine, inactivated 2021 187 GlaxoSmithKli ne complet ed zoster vaccine, inactivat ed 12/08/21 Given Ambulat ory Pharmac y COVID Vaccine Pfizer 2020 [id number] PFIZER complet ed COVID Vaccine Pfizer 09/16/21 Given Ambulat ory Pharmac y influenza, injectable, quadrivalent 2020 [id number] GlaxoSmithKli ne complet ed influenza , injectabl e, quadrival ent 08/13/21 Given Ambulat ory Pharmac y COVID Vaccine Moderna 2020 [id number] complet ed COVID Vaccine Moderna 01/09/21 Given Ambulat ory Pharmac y COVID Vaccine Moderna 2020 [id number] complet ed COVID Vaccine Moderna 12/14/20 Given Ambulat ory Pharmac y influenza, injectable, quadrivalent- pf 2019 [id number] 150 Seqirus complet ed influenza , injectabl e, quadrival ent-pf 09/02/20 Given Ambulat ory Pharmac y influenza, injectable, quadrivalent- pf 2018 [id number] 150 Seqirus complet ed influenza , injectabl e, quadrival ent-pf 08/03/19 Given Ambulat ory Pharmac y tetanus, diphtheria, acellular pertu is 2018 [id number] ne complet ed tetanus, diphtheri a, acellular pertussis 04/05/19 Given Ambulat ory Pharmac y influenza, injectable, quadrivalent 2017 [id number] Seqirus complet ed influenza , injectabl e, quadrival ent 08/21/18 Given Ambulat ory Pharmac y measles/mumps /rubella virus vaccine 2017 [id number] Merck & Company Inc complet ed measles/m umps/rube lla virus vaccine 03/31/18 Given Ambulat ory Pharmac y typhoid Vi capsular polysaccharid e vac 2017 [id number] sanofi pasteur complet ed typhoid Vi capsular polysacch aride vac 03/31/18 Given Ambulat ory Pharmac y measles/mumps /rubella virus vaccine 2017 [id number] [employer]ck [employer] Inc complet ed measles/m umps/rube lla virus vaccine 03/02/18 Given Ambulat ory Pharmac y Influenza, inj, MDCK, quadrivalent- pf 2016 [id number] Seqirus complet ed Influenza , inj, MDCK, quadrival ent-pf 08/12/17 Given Ambulat ory Pharmac y influenza, seasonal, injectable-pf 2015 [id number] Seqirus complet ed influenza , seasonal, injectabl e-pf 08/12/16 Given Ambulat ory Pharmac y typhoid Vi capsular polysaccharid e vac 2015 [id number] sanofi pasteur complet ed typhoid Vi capsular polysacch aride vac 01/21/16 Given Ambulat ory Pharmac y influenza, seasonal, injectable-pf 2014 [id number] CSL [employer]ring complet ed influenza , seasonal, injectabl e-pf 08/01/15 Given Ambulat ory Pharmac y hepatitis B adult vaccine 2014 [id number] Merck & Company Inc complet ed hepatitis B adult vaccine 02/27/15 Given Ambulat ory Pharmac y influenza, seasonal, injectable 2013 [id number] [employer] comple t ed influenza , seasonal, injectabl e 08/01/14 Given Ambulat ory Pharmac y hepatitis B adult vaccine 2013 [id number] [employer]ck [employer] Company Inc complet ed hepatitis B adult vaccine 07/04/14 Given Ambulat ory Pharmac y hepatitis B adult vaccine 2013 [id number] [employer]ck [employer] Inc complet ed hepatitis B adult vaccine 04/04/14 Given Ambulat ory Pharmac y influenza, seasonal, injectable 2012 [id number] 141 CSL [employer]ring complet ed influenza , seasonal, injectabl e 08/30/13 Given Ambulat ory Pharmac y influenza, seasonal, injectable 2011 [id number] 141 CSL Behring complet ed influenza , seasonal, injectabl e 08/10/12 Given Ambulat ory Pharmac y influenza, seasonal, injectable-pf 2010 [id number] 140 sanofi pasteur complet ed influenza , seasonal, injectabl e-pf 07/29/11 Given Ambulat ory Pharmac y influenza virus vaccine,split 2009 [id number] 15 sanofi pasteur complet ed influenza virus vaccine,s plit 10/02/10 Given Ambulat ory Pharmac y influenza virus vaccine, live 2008 [id number] Med[employer] Inc comple t ed influenza virus vaccine, live 07/31/09 Given Ambulat ory Pharmac y tetanus, diphtheria, acellular pertu is 2008 [id number] 115 sanofi pasteur complet ed tetanus, diphtheri a, acellular pertussis 02/27/09 Given Ambulat ory Pharmac y influenza virus vaccine, live 2007 [id number] 111 [employer] Inc comple t ed influenza virus vaccine, live 08/01/08 Given Ambulat ory Pharmac y influenza virus vaccine, live 2006 [id number] 111 [employer] Inc comple t ed influenza virus vaccine, live 09/28/07 Given Ambulat ory Pharmac y influenza virus vaccine,split 2005 [id number] 15 sanofi pasteur complet ed influenza virus vaccine,s plit 09/16/06 Given Ambulat ory Pharmac y influenza virus vaccine,split 2005 [id number] 15 sanofi pasteur complet ed influenza virus vaccine,s plit 11/05/05 Given Ambulat ory Pharmac y typhoid Vi capsular polysaccharid e vac 2003 [id number] sanofi pasteur complet ed typhoid Vi capsular polysacch aride vac 04/15/04 Given Ambulat ory Pharmac y anthrax vaccine 2003 [id number] [employer] complet ed anthrax vaccine 02/27/04 Given Ambulat ory Pharmac y anthrax vaccine 2002 [id number] 24 [employer] complet ed anthrax vaccine 08/29/03 Given Ambulat ory Pharmac y tuberculin purified protein derivative 2002 [id number] 96 sanofi pasteur complet ed tuberculi n purified protein derivativ e 08/01/03 Given Ambulat ory Pharmac y influenza virus vaccine, whole virus [id number] [facility] complet ed influenza virus vaccine, whole virus 08/01/03 Given Ambulat ory Pharmac y vaccinia (smallpox) vaccine [id number] [facility] complet ed vaccinia (smallpox ) vaccine 11/24/02 Given Ambulat ory Pharmac y anthrax vaccine 2001 [id number] [employer] complet ed anthrax vaccine 10/04/02 Given Ambulat ory Pharmac y tuberculin purified protein derivative 2001 [id number] 96 sanofi pasteur complet ed tuberculi n purified protein derivativ e 08/03/02 Given Ambulat ory Pharmac y influenza virus vaccine, whole virus 2001 [id number] 16 sanofi pasteur complet ed influenza virus vaccine, whole virus 08/03/02 Given Ambulat ory Pharmac y typhoid Vi capsular polysaccharid e vac 2001 [id number] sanofi pasteur complet ed typhoid Vi capsular polysacch aride vac 04/06/02 Given Ambulat ory Pharmac y tuberculin purified protein derivative 2000 [id number] 96 sanofi pasteur complet ed tuberculi n purified protein derivativ e 08/31/01 Given Ambulat ory Pharmac y influenza virus vaccine, whole virus 2000 [id number] 16 sanofi pasteur complet ed influenza virus vaccine, whole virus 08/31/01 Given Ambulat ory Pharmac y influenza virus vaccine, whole virus 2000 [id number] 16 [facility] complet ed influenza virus vaccine, whole virus 11/04/00 Given Ambulat ory Pharmac y tuberculin purified protein derivative 1999 [id number] [facility] complet ed tuberculi n purified protein derivativ e 07/07/00 Given Ambulat ory Pharmac y anthrax vaccine 1999 [id number] [employer] complet ed anthrax vaccine 04/22/00 Given Ambulat ory Pharmac y anthrax vaccine 1999 [id number] [employer] complet ed anthrax vaccine 03/16/00 Given Ambulat ory Pharmac y anthrax vaccine 1999 [id number] [employer] complet ed anthrax vaccine 03/02/00 Given Ambulat ory Pharmac y tuberculin purified protein derivative 1999 [id number] 96 [facility] complet ed tuberculi n purified protein derivativ e 02/05/00 Given Ambulat ory Pharmac y typhoid vaccine, parenteral 1999 [id number] 41 sanofi pasteur complet ed typhoid vaccine, parentera l 02/05/00 Given Ambulat ory Pharmac y hepatitis A adult vaccine 1999 [id number] [employer] Inc complet ed hepatitis A adult vaccine 11/05/99 Given Ambulat ory Pharmac y influenza virus vaccine, whole virus [id number] 16 [facility] complet ed influenza virus vaccine, whole virus 09/04/99 Given Ambulat ory Pharmac y yellow fever vaccine 1998 [id number] sanofi pasteur complet ed yellow fever vaccine 09/04/99 Given Ambulat ory Pharmac y meningococcal polysaccharid e (MPSV4) [id number] 32 sanofi pasteur complet ed meningoco ccal polysacch aride (MPSV4) 03/08/99 Given Ambulat ory Pharmac y tetanus-dipht h toxoids (Td) adult/adol [id number] 09 sanofi pasteur complet ed tetanus-d iphth toxoids (Td) adult/ado l 03/01/99 Given Ambulat ory Pharmac y hepatitis A adult vaccine 1998 [id number] 52 [employer] complet ed hepatitis A adult vaccine 02/25/99 Given Ambulat ory Pharmac y tuberculin purified protein derivative 1998 [id number] 96 [employer] complet ed tuberculi n purified protein derivativ e 02/25/99 Given Ambulat ory Pharmac y influenza virus vaccine, whole virus [id number] 16 sanofi pasteur complet ed influenza virus [...] l 02/26/89 Given Ambulat ory Pharmac y Procedures Combined list of: 1) Procedures from Department of Veterans Affairs facilities going back up to thelast 18 months, not all [place] non-surgical procedures are included; 2) All procedures from the Department of Defense facilities. Procedure Procedure Type Code Date Perfomer Comments Sourc e No data available for this section Ambulatory P harmacy Assessment and Plan Combined list of future care activities from Department of Defense and Veterans Affairs facilities (e.g., assessment and plan notes, appointments, orders, and referrals). Additional future care activities may be listed in the Plan of Care section. Result Assessment and Plan Date Source Assessment and Plan No data available for this section 01/13/2025 Ambulatory Pharmacy Functional Status Combined list of recent functional and cognitive assessments recorded at Department of Defense and Veterans Affairs ([facility]).[place] Functional Cocoa Measurement (FIM) Scale: 1 = Total Assistance (Subject = 0% +), 2 = Maximal Assistance (Subject = 25% +), 3 = Moderate Assistance (Subject = 50% +), 4 = Minimal Assistance (Subject = 75% +), 5 = Supervision, 6 = Modified Cocoa (Device), 7 = Complete Cocoa (Timely, Safely). Assessment Date/Time Source Assessment Type Assessment Skill Assessment Score Assessment Details No data available for this section
--- NOTE | 2025-01-13 08:07 | A.OFFVIS_ITS ---
Intake Visit Reasons: f/u ultrasound (set) Intake Note: Patient presents today for follow up on: bilateral nephrolithiasis and ultrasound results Imaging Completed: 12/17/24 Urology Medication: Vitamin B6 Blood Thinner: none Gold Charmer Required: No Accompanied by: Self / Same As Patient Allergies No Known Allergies Allergy (Verified 01/13/25 08:15) HPI Comments Details: Ryne is a pleasant 54-year-old male patient of Dr. Vásquez. He has a past medical history of anxiety and depression. He presents to the office today for follow-up of his elevated PSA as well as nephrolithiasis. In discussion with the patient today reports to be doing and feeling well. He denies having had any bothersome urinary issues since his last office visit. Recent renal imaging results reviewed with the patient today. 12/23 bilateral kidneys are normal in size and echotexture. There is a 4 mm nonobstructing calculus within the upper pole of the left kidney as well as a 4 mm calculus within the lower pole of the left kidney. Left renal cysts noted. Otherwise no hydronephrosis noted. When asked he currently denies any bothersome urinary issues or concerns. He reports compliance with vitamin B6 and drinking plenty of water daily. He currently denies any bothersome urinary issues or concerns. PSAs are as follows: PSA: 06/16 1.8, 09/19 4.5, 11/20 1.7, 06/21 1.9 When asked he denies urinary urgency, urinary frequency, incontinence, hematuria, dysuria, foul smelling urine, changes to urinary stream, flank pain, fever, and or chills. He does report having had an episode of left sided flank pain that radiated to lower abdominal/groin area approximately 1-2 months ago. Recent history of pain, described as a sensitive area when wearing a belt, resolved with analgesics (Tylenol/Motrin), with no rash or additional symptoms noted. He does report getting up 1-2 times per night to void however does not find this bothersome. He is happy with his current voiding parameters. He otherwise offers no other issues or concerns at this time. In office urinalysis results reviewed with the patient today. Discussion Notes During this visit, I reviewed the patient's recent imaging and noted a reduction in nephrolithiasis burden. The imaging showed two small stones in the left kidney, with none on the right. I explained that the reduction in stone burden is likely due to the dissolution or clearance of previous clusters and that current stones are less obstructive, with one 4 mm stone in both the upper and lower poles. The patient did report transient pain post-ultrasound, but it resolved with uukx-snm-juvrroj analgesics. I discussed continuing surveillance through ultrasound due to lower radiation exposure compared to CT scans, with the option to switch to CT in the event of escalating symptoms such as persistent pain unresponsive to analgesics. Additionally, I addressed the need for annual PSA testing to monitor prostate health since the last test was performed 05/2024. The patient was agreeable to these plans and understood the importance of follow-up and alerting me to any changes in symptoms. [facility] Medical History (Reviewed 01/13/25 @ 08:08 by Francine Candelario [facility]) Tinea cruris Nocturia History of depression History of anxiety Surgical History (Reviewed 07/21/24 @ 08:15 by Charlie Vásquez [facility]) Hx of colonoscopy Family History Father No problems noted. Mother No problems noted. Social History Household Members: None Housing: House Alcohol intake: current Alcohol intake frequency: a few times a week Alcohol type: hard liquor Patient Tobacco Use Status: Former Tobacco user e-Cigarette/Vaping Use: Never Used Second Hand Smoke Exposure: No service: Yes Current occupational status: retired Current occupation: [employer] Current occupational exposures/hazards: Yes Cognitive needs: No Hearing needs: No Vision needs: No Review of Systems Const All systems reviewed & are unremarkable except as noted in HPI and below Reports no additional complaints Eyes Reports no additional complaints ENT Reports no additional complaints Card Reports no additional complaints Resp Reports no additional complaints GI Reports no additional complaints Reports as per HPI Musc Reports no additional complaints Neuro Reports no additional complaints Psych Reports as per HPI Endo Reports no additional complaints Crhis/Lymph Reports no additional complaints Aller/Immun Reports no additional complaints Physical Exam Const General: cooperative, healthy appearing, comfortable, no acute distress, well developed, alert and awake Orientation/consciousness: patient oriented x3 Limitations: no limitations HEENT Head: Yes normal to inspection, Yes normocephalic and Yes atraumatic Ears: hearing grossly normal bilaterally Eyes General: appearance normal, both eyes and all related structures Neck Neck: Yes normal visual inspection and Yes trachea midline Chest Chest palpation & inspection: normal inspection of the chest Resp Effort & Inspection: normal respiratory effort and able to speak in complete sentences Cardio Rate: regular rate GI Inspection: Yes normal to inspection General: Yes no CVA tenderness Back/Spine/Pelvis Back: no CVA tenderness Skin General skin exam: no rashes or lesions noted Neuro General: patient oriented x3 Extrem General: Yes normal to inspection Psych Appearance: grossly normal and well kempt Mental Status: mental status grossly normal Speech and movement: Clear speech present Affect: normal affect Attitude: cooperative Thought process: Normal thought process present Thought content: Normal thought content present Insight: Fair insight present (Psych) Judgement: Fair judgement present (Psych) Results AMB Urinalysis, Automated UA Leukoctes 0 Inlo/uL Last Edit by JesseBloomspot Pascale on 01/13/25 08:17 UA Nitrite Last Edit by JesseBloomspot Pascale on 01/13/25 08:17 UA Urobilinogen 0.2 mg/dL Last Edit by CoContest JeimyArtklikk on 01/13/25 08:17 UA Protein 15 mg/dL Last Edit by BodBot on 01/13/25 08:17 UA pH 5.5 Last Edit by BodBot on 01/13/25 08:17 UA Blood 80 Kilo/uL Last Edit by StudyMaxjosef on 01/13/25 08:17 UA Specific [place] 1.025 Last Edit by StudyMaxjosef on 01/13/25 08:17 UA Ketone Negative Last Edit by BodBot on 01/13/25 08:17 UA Bilirubin 0 mg/dL Last Edit by CoContest Pascale on 01/13/25 08:17 UA Glucose 0 mg/dL Last Edit by Urbano Ashraf on 01/13/25 08:17 Results Reviewed Results Reviewed: Date of Service: 12/16/24 Procedure(s): US renal BI US Renal Comparison: None Findings: Right kidney normal size and echotexture, 10.1 cm length. Left kidney normal size and echotexture, 10.4 cm length. There is a 4 mm nonobstructive calculus within the upper pole of the left kidney. There is a 4 mm calculus or parenchymal calcification within the superior left kidney. This is associated with a 8 mm cyst. There is a 4 mm calculus or parenchymal calcification within the lower pole of the left kidney associated with a 1 cm cyst. No collecting system dilatation of either kidney. Normal color Doppler. IMPRESSION: 1. 4 mm nonobstructive calculus within the upper pole of the left kidney. Two additional tiny calculi or parenchymal calcifications within the left kidney also present. Assessment & Plan Assessment & Plan (1) Elevated PSA: Code(s): R97.20 - Elevated prostate specific antigen [PSA] Category: Medical (2) Bilateral nephrolithiasis: Code(s): N20.0 - Calculus of kidney Category: Medical (3) Renal cyst: Code(s): N28.1 - Cyst of kidney, acquired Category: Medical Plan In office urinalysis results reviewed with the patient today; as noted above; will send for urine cytology. Recent renal imaging results reviewed with the patient today; as noted above. Continue drinking plenty of water daily Continue vitamin B6 as discussed and prescribed; refill provided. Patient currently denies any bothersome urinary issues or concerns. He reports be happy with current voiding parameters. We discussed obtaining PSA prior to next follow-up. Will obtain PSA in 6 months. Will obtain renal ultrasound in 6 months. Follow-up in 6 months with imaging and lab; or sooner with any issues, concerns, and or questions. Orders: Orders US retroperitoneal comp 6 Months N20.0 - Calculus of kidney, N28.1 - Cyst of kidney, acquired, R97.20 - Elevated prostate specific antigen [PSA] AMB Urinalysis Automated Today Z13.9 - Encounter for screening, unspecified Urine Cytology Today R31.29 - Other microscopic hematuria Prostate Specific Antigen 6 Months R97.20 - Elevated prostate specific antigen [PSA] Medications: Refilled pyridoxine (vitamin B6) 100 mg PO DAILY 90 days 90 tabs 1RF Patient Instructions: The patient had an opportunity to ask questions regarding the treatment plan. All questions were answered. Physical exam, labs, and imaging were discussed and reviewed in detail. As well as risks, benefits, and discussion of treatment choices. No major barriers to understanding were identified. The patient expressed understanding and agreement with the above treatment plan. The patient was made aware they should contact our office by phone for worsening of their current condition, the appearance of new symptoms, or with any questions or concerns. Compliance is encouraged with any medications and follow up testing that is ordered. It is a privilege to be allowed the opportunity to participate in? your urological care.? Again, if you have any questions or concerns If you have any questions or concerns please do not hesitate to contact me. The office is [phone]. This note is constructed using voice recognition software. While every effort has been made to ensure accuracy handle rounder operator errors may have been included. Yours sincerely, ANTOINETTE Huang-JOI Coding Level of Care Code Est Pt Level 3 (60774) Diagnoses Elevated PSA R97.20 Bilateral nephrolithiasis N20.0 Renal cyst N28.1
== END 2025-01-13 08:29 | disposition home or self-care (01) ==
LOC: HO.HUSH 07:35
PROVIDERS: PCP Nurse Practitioner Family; Visit Provider Nurse Practitioner Family
DX: R97.20 Elevated prostate specific antigen [PSA] (principal); N20.0 Calculus of kidney; N28.1 Cyst of kidney, acquired; Z13.9 Encounter for screening, unspecified
CPT/HCPCS: 99213

== ENCOUNTER 2025-01-13 08:24 | Outpatient (REF) | payer OTHER, SELFPAY ==
[2025-01-13 16:58] LABS: Urine Cytology See Pathology rpt
== END 2025-01-13 08:25 | disposition home or self-care (01) ==
LOC: HO.LNP 08:24
PROVIDERS: Visit Provider Nurse Practitioner Family
DX: R31.29 Other microscopic hematuria (principal)
CPT/HCPCS: 88112

== ENCOUNTER 2025-07-08 09:43 | Outpatient (REF) | payer OTHER, SELFPAY ==
--- NOTE | ~2025-07-08 | US_ITS ---
EXAMINATION: US RETROPERITONEAL COMPLETE (RENAL) CLINICAL INFORMATION: Elevated prostate specific antigen PSA.. COMPARISON: December 16, 2024 TECHNIQUE: Real-time imaging of the kidneys and bladder. FINDINGS: RIGHT KIDNEY: 11 x 4 x 5 cm (SAG x AP x TRV). Normal echotexture. Normal renal cortical thickness. No hydronephrosis. No solid or cystic lesion. LEFT KIDNEY: 11 x 6 x 6 cm (SAG x AP x TRV). Normal echotexture. Normal renal cortical thickness. No hydronephrosis. There is a 1.1 cm septated and questionable partially calcified anechoic lesion at the corticomedullary junction of the lower pole. There is a 0.6 cm anechoic lesion with the septations at the corticomedullary junction of the upper pole. BLADDER: Fluid-filled. Bilateral ureteral jets are demonstrated. Prevoid bladder volume is 269 mL. Postvoid bladder volume is 42 mL. The prostate gland is heterogeneous and nodular with partial calcification measures 3.7 x 3.1 x 4.8 cm with a volume: 28 cc. US/US retroperitoneal comp IMPRESSION: No hydronephrosis. 1.1 cm and 0.6 cm septated complex cystic lesions, left kidney. Prostate gland volume: 28 cc.. Electronically signed by: Magdaleno Lees MD 07/08/2025 10:48 AM EDT
== END 2025-07-08 09:44 | disposition home or self-care (01) ==
LOC: HO.US 09:43
PROVIDERS: PCP Nurse Practitioner Family; Visit Provider Nurse Practitioner Family
DX: R97.20 Elevated prostate specific antigen [PSA] (principal); N20.0 Calculus of kidney; N28.1 Cyst of kidney, acquired
CPT/HCPCS: 76770

== ENCOUNTER → 2025-07-08 09:47 | Outpatient (BNV) | payer OTHER, SELFPAY | PROVIDERS: PCP Nurse Practitioner Family; Visit Provider Radiology Diagnostic Radiology | DX: N28.1 Cyst of kidney, acquired (principal) | CPT/HCPCS: 76770 ==

== ENCOUNTER 2025-09-10 15:20 | Outpatient (REF) | payer OTHER, SELFPAY ==
[2025-09-10 16:22] LABS: Prostate Specific Antigen 4.16 ng/mL (<0.05-4.0)
== END 2025-09-10 15:21 | disposition home or self-care (01) ==
LOC: HO.LAB 15:20
PROVIDERS: PCP Nurse Practitioner Family; Visit Provider Nurse Practitioner Family
DX: R97.20 Elevated prostate specific antigen [PSA] (principal); Z12.5 Encounter for screening for malignant neoplasm of prostate
CPT/HCPCS: 36415; 84153

== ENCOUNTER 2025-09-14 12:48 | Outpatient (AMB) | payer OTHER, SELFPAY ==
--- NOTE | 2025-09-14 12:55 | A.OFFVIS_ITS ---
Intake Visit Reasons: 6m/US/PSA Intake Note: Patient is Present for Follow Up US/PSA/PVR Urology Medication: Vitamin B6 Antibiotic Allergies: None Blood Thinners: None PVR: 3ml Care Process Manager Required: No Accompanied by: Self / Same As Patient Allergies No Known Allergies Allergy (Verified 09/14/25 22:05) Medication List - Last Reconciled 09/14/25 by MARIE HuangP- clotrimazole-betamethasone 1-0.05 % 1 appl topical BID 2 weeks losartan 50 mg PO DAILY 90 days meloxicam 15 mg PO DAILY PRN 30 days HPI Comments Details: Ryne is a pleasant 55-year-old male patient of Dr. Vásquez. He has a past medical history of anxiety and depression. He presents to the office today for follow-up of his elevated PSA as well as nephrolithiasis. In discussion with the patient today reports to be doing and feeling well. He denies having had any bothersome urinary issues since his last office visit. Recent renal imaging results reviewed with the patient today. 07/23 bilateral kidneys are normal in echotexture and thickness. No hydronephrosis noted bilaterally. Left kidney with 1.1 cm and 0.6 cm renal cysts no nephrolithiasis noted. The bladder is fluid-filled. Postvoid bladder volume 42 mL. The prostate measures 28 mL. Most recent PSA results reviewed with the patient today as noted and trended below: PSA: 06/16 1.8, 09/19 4.5, 11/20 1.7, 06/21 1.9, 09/22 4.2 We did discuss elevated PSA as well as labile PSA. He does report refraining from any sexual activity prior to blood work however he does endorse to drinking caffeine. We did discussed at length potential causes of elevated and labile PSAs. We did discuss further treatment options and risks and benefits of these treatment options. He reports he has not had any bothersome urinary issues or concerns. When asked he denies urinary urgency, urinary frequency, incontinence, hematuria, dysuria, foul smelling urine, changes to urinary stream, flank pain, fever, and or chills. He is happy with his current voiding parameters. He denies any known family history of prostate cancer. He otherwise offers no other issues or concerns at this time. In office urinalysis results reviewed with the patient today. PVR 3 mL. PFSH Medical History Tinea cruris Nocturia History of depression History of anxiety Surgical History Hx of colonoscopy Family History Father No problems noted. Mother No problems noted. Social History Household Members: None Housing: House Alcohol intake: current Alcohol intake frequency: a few times a week Alcohol type: hard liquor Patient Tobacco Use Status: Former Tobacco user e-Cigarette/Vaping Use: Never Used Second Hand Smoke Exposure: No service: Yes Current occupational status: retired Current occupation: [employer] Current occupational exposures/hazards: Yes Cognitive needs: No Hearing needs: No Vision needs: No Review of Systems Const All systems reviewed & are unremarkable except as noted in HPI and below Reports no additional complaints Eyes Reports no additional complaints ENT Reports no additional complaints Card Reports no additional complaints Resp Reports no additional complaints GI Reports no additional complaints Reports as per HPI Musc Reports no additional complaints Neuro Reports no additional complaints Psych Reports as per HPI Endo Reports no additional complaints Chris/Lymph Reports no additional complaints Aller/Immun Reports no additional complaints Physical Exam Const General: cooperative, healthy appearing, comfortable, no acute distress, well developed, alert and awake Orientation/consciousness: patient oriented x3 Limitations: no limitations HEENT Head: Yes normal to inspection, Yes normocephalic and Yes atraumatic Ears: hearing grossly normal bilaterally Eyes General: appearance normal, both eyes and all related structures Neck Neck: Yes normal visual inspection and Yes trachea midline Chest Chest palpation & inspection: normal inspection of the chest Resp Effort & Inspection: normal respiratory effort and able to speak in complete sentences Cardio Rate: regular rate GI Inspection: Yes normal to inspection General: Yes no CVA tenderness Back/Spine/Pelvis Back: no CVA tenderness Skin General skin exam: no rashes or lesions noted Neuro General: patient oriented x3 Extrem General: Yes normal to inspection Psych Appearance: grossly normal and well kempt Mental Status: mental status grossly normal Speech and movement: Clear speech present Affect: normal affect Attitude: cooperative Thought process: Normal thought process present Thought content: Normal thought content present Insight: Fair insight present (Psych) Judgement: Fair judgement present (Psych) Office Procedures Post Void Residual Post Residual Void Post Void Residual (PVR): 3 64958-Clbc Void Residual by ultrasound Results AMB Urinalysis, Automated UA Leukoctes 0 Nilo/uL Last Edit by Melissa Huizar, A on 09/14/25 13:05 UA Nitrite Negative Last Edit by Melissa Huizar, A on 09/14/25 13:05 UA Urobilinogen 0.2 mg/dL Last Edit by Melissa Huizar, RMA on 09/14/25 13:0 5 UA Protein 0 mg/dL Last Edit by Melissa Huizar, A on 09/14/25 13:05 UA pH 6.5 Last Edit by Melissa Huizar, A on 09/14/25 13:05 UA Blood 0 Kilo/uL Last Edit by Melissa Huizar, A on 09/14/25 13:05 UA Specific [place] 1.015 Last Edit by Melissa Huizar, A on 09/14/25 13: 05 UA Ketone Negative Last Edit by Melissa Huizar, A on 09/14/25 13:05 UA Bilirubin 0 mg/dL Last Edit by Melissa Huizar, A on 09/14/25 13:05 UA Glucose 0 mg/dL Last Edit by Melissa Huizar, A on 09/14/25 13:05 Results Reviewed Results Reviewed: Laboratory Last Values Urine pH (Auto) 6.5 09/14/25 13:04 Specific [place] (Auto) 1.015 09/14/25 13:04 Urine Protein (Auto) 0 mg/dL 09/14/25 13:04 Glucose (UA)(Auto) 0 mg/dL 09/14/25 13:04 Urine Ketones (Auto) Negative 09/14/25 13:04 Urine Blood (Auto) 0 Kilo/uL 09/14/25 13:04 Urine Nitrite (Auto) Negative 09/14/25 13:04 Urine Bilirubin (Auto) 0 mg/dL 09/14/25 13:04 Urine Urobilinogen (Auto) 0.2 mg/dL 09/14/25 13:04 Leukocyte Esterase (Auto) 0 Nilo/uL 09/14/25 13:04 Date of Service: 07/08/25 Procedure(s): US retroperitoneal comp FINDINGS: RIGHT KIDNEY: 11 x 4 x 5 cm (SAG x AP x TRV). Normal echotexture. Normal renal cortical thickness. No hydronephrosis. No solid or cystic lesion. LEFT KIDNEY: 11 x 6 x 6 cm (SAG x AP x TRV). Normal echotexture. Normal renal cortical thickness. No hydronephrosis. There is a 1.1 cm septated and questionable partially calcified anechoic lesion at the corticomedullary junction of the lower pole. There is a 0.6 cm anechoic lesion with the septations at the corticomedullary junction of the upper pole. BLADDER: Fluid-filled. Bilateral ureteral jets are demonstrated. Prevoid bladder volume is 269 mL. Postvoid bladder volume is 42 mL. The prostate gland is heterogeneous and nodular with partial calcification measures 3.7 x 3.1 x 4.8 cm with a volume: 28 cc. IMPRESSION: No hydronephrosis. 1.1 cm and 0.6 cm septated complex cystic lesions, left kidney. Prostate gland volume: 28 cc.. Assessment & Plan Assessment & Plan (1) Renal cyst: Code(s): N28.1 - Cyst of kidney, acquired Category: Medical (2) Elevated PSA: Code(s): R97.20 - Elevated prostate specific antigen [PSA] Category: Medical Plan In office urinalysis results reviewed with the patient today; as noted above. PVR 3 mL. Most recent PSA results reviewed with the patient today; as noted above. Most recent retroperitoneal ultrasound results reviewed with the patient today; as noted above. We did discussed at length potential causes of renal cysts as well as labile/elevated PSA; we did discussed further treatment options of these urological conditions and risks and benefits of these treatment options. Will obtain redraw of PSA with no sex the night before, no caffeine morning of, and no heavy lifting 1-2 [address] prior[address] Will obtain CT renal mass protocol for further assessment evaluation. BUN and creatinine ordered for imaging. He currently denies any bothersome urinary issues or concerns. He reports be happy with current voiding parameters. All questions were answered to the best of my ability. Follow-up in 1-3 months with imaging and labs; or sooner with any issues, concerns, and or questions. Orders: Orders AMB Post Void Residual by ultrasound Today R35.1 - Nocturia PSA,Total (Free>4and<10) Today R97.20 - Elevated prostate specific antigen [PSA] Blood Urea Nitrogen Today R39.15 - Urgency of urination Creatinine Today R39.15 - Urgency of urination AMB Urinalysis Automated Today R35.1 - Nocturia, Z13.9 - Encounter for screening, unspecified CT abdomen pelvis wo/w IV con Today N28.1 - Cyst of kidney, acquired Medications: Discontinued pyridoxine (vitamin B6) Discontinued Reason: Doctor's Order 100 mg PO DAILY 90 days 90 tabs 1RF Patient Instructions: The patient had an opportunity to ask questions regarding the treatment plan. All questions were answered. Physical exam, labs, and imaging were discussed and reviewed in detail. As well as risks, benefits, and discussion of treatment choices. No major barriers to understanding were identified. The patient expressed understanding and agreement with the above treatment plan. The patient was made aware they should contact our office by phone for worsening of their current condition, the appearance of new symptoms, or with any questions or concerns. Compliance is encouraged with any medications and follow up testing that is ordered. It is a privilege to be allowed the opportunity to participate in? your urological care.? Again, if you have any questions or concerns If you have any questions or concerns please do not hesitate to contact me. The office is [phone]. This note is constructed using voice recognition software. While every effort has been made to ensure accuracy switch operators supervisor errors may have been included. Yours sincerely, MY Huang Coding Level of Care Code Est Pt Level 3 (39402) Complex EM visit Add On G2211 Diagnoses Renal cyst N28.1 Elevated PSA R97.20 CPT Codes Post Residual Void - PVR CPT Code: 83107-Bfpv Void Residual by ultrasound ([id number])
== END 2025-09-14 13:28 | disposition home or self-care (01) ==
LOC: HO.HUSH 12:49
PROVIDERS: PCP Nurse Practitioner Family; Visit Provider Nurse Practitioner Family
DX: Z13.9 Encounter for screening, unspecified (principal); R35.1 Nocturia; N28.1 Cyst of kidney, acquired; R97.20 Elevated prostate specific antigen [PSA]
CPT/HCPCS: 99213

== ENCOUNTER → 2025-09-14 12:48 | Outpatient (BNVA) | payer OTHER, SELFPAY | PROVIDERS: PCP Nurse Practitioner Family; Visit Provider Nurse Practitioner Family | DX: N28.1 Cyst of kidney, acquired (principal); R35.1 Nocturia; R39.15 Urgency of urination | CPT/HCPCS: 51798; 81003; 99212 ==